=== PATIENT | female | born 1945 | race Caucasian/White ===

== ENCOUNTER 2024-11-24 17:09 | Inpatient (IN) | payer MEDICARE, SELFPAY ==
[2024-11-24] VITALS (17 sets, daily range): BP systolic 73–120; BP diastolic 42–90; PULSE 71–103; RESP 9–20; TEMP 33.7–34.9; O2SAT 92–98
--- NOTE | ~2024-11-24 | CT_ITS ---
CLINICAL HISTORY: altered mental status CT Head WO Contrast COMPARISON: None FINDINGS: No acute intracranial hemorrhage. No evidence of acute infarction. Diffuse cortical volume loss. Nonspecific white matter hypodensities, most commonly associated with chronic microangiopathic changes. No mass-effect or midline shift. No hydrocephalus. Visualized orbits are normal. Clear paranasal sinuses. Clear mastoid air cells. No acute fracture. Unremarkable soft tissues. IMPRESSION: No acute intracranial findings. Nonemergent/incidental findings in the report. This document has been electronically signed by: Andres Villeda MD on 11/24/2024 20:31:26
--- NOTE | ~2024-11-24 | XR_ITS ---
CLINICAL HISTORY: sepsis --- Additional Notes or Special Instructions: Blood work - 1826 Chest X-ray, 1 View COMPARISON: None FINDINGS: Ovoid mass or consolidation projecting over the lateral left mid lung measuring 4.4 cm. Ovoid nodule or consolidation projecting over the right lower lung measuring 2.8 cm. Scarring at the lung apices. Pulmonary hyperinflation suggestive of COPD. No pleural effusion. No pneumothorax. No cardiomegaly. No acute fracture. Lumbar dextroscoliosis. Degenerative changes in the spine. IMPRESSION: Left pulmonary mass and right lower lung pulmonary nodule versus consolidations. Recommend follow-up chest x-ray or CT Chest. Nonemergent/incidental findings above. This document has been electronically signed by: Andres Villeda MD on 11/24/2024 19:35:47
--- NOTE | ~2024-11-24 | CT_ITS ---
CLINICAL HISTORY: abn CXR, mass vs infiltrate CT Chest WO Contrast COMPARISON: CR - XR CHEST 1V - 11/24/24 19:11 EDT FINDINGS: Detail limited by motion artifacts. Left breast or chest wall mass measuring 4.8 x 2.0 cm (series 3, image 27), which appears to correspond to density projecting over the left chest on recent chest x-ray. No pulmonary consolidation or mass. Centrilobular and paraseptal emphysematous changes. Scarring at the lung apices. No pleural effusion. No pneumothorax. No cardiomegaly. No pericardial effusion. No pathologically enlarged lymph nodes. No thoracic aortic aneurysm. No acute fracture. Thoracic dextroscoliosis and lumbar levoscoliosis. Degenerative changes in the spine. IMPRESSION: No acute findings. No pulmonary mass, nodule, or consolidation. Left breast or chest wall mass corresponding to left chest density seen on recent chest x-ray. Please correlate with history and clinical findings. Consider diagnostic mammogram if indicated. Nodular right lower lung density seen on recent chest x-ray appears to have been a projectional artifact. Nonemergent/incidental findings above. See separate CT Abdomen/Pelvis report. This document has been electronically signed by: Andres Villeda MD on 11/24/2024 20:56:43
--- NOTE | ~2024-11-24 | CT_ITS ---
CLINICAL HISTORY: Possible sepsis, no clear source CT Abdomen and Pelvis WO Contrast COMPARISON: None FINDINGS: Detail limited by artifacts. Normal liver. Normal spleen. Bilateral renal cysts including a hyperdense hemorrhagic left renal cyst. Normal variant superior positioning of the right kidney. No hydronephrosis. Normal adrenal glands. Normal pancreas. No visible cholelithiasis. No biliary dilation. Colonic diverticulosis without evidence of acute diverticulitis. No mucosal thickening. No evidence of obstruction. The appendix is not identified. Poorly distended bladder. Unremarkable uterus. No ascites. No pneumoperitoneum. No lymphadenopathy. No acute fracture. Lumbar levoscoliosis. Degenerative changes in the spine and hips. Chronic appearing fracture at the sacrococcygeal junction. No abdominal aortic aneurysm. Atherosclerosis. Rectal temperature probe in place. IMPRESSION: No acute findings. Nonemergent/incidental findings above. This document has been electronically signed by: Andres Villeda MD on 11/24/2024 20:53:48
--- NOTE | ~2024-11-24 | US_ITS ---
CLINICAL HISTORY: swelling Venous duplex ultrasound left upper extremity Comparison: None Findings: Accessible deep venous segments are fully compressible with normal Doppler color flow and spectral tracings. IMPRESSION: 1. Negative for left upper extremity deep vein thrombosis. This document has been electronically signed by: Martita Johnson MD on 12/01/2024 18:37:47
--- NOTE | 2024-11-24 17:48 | ECG_ITS ---
Test Reason : FALL Blood Pressure : */* mmHG Vent. Rate : 78 BPM Atrial Rate : * BPM P-R Int : * ms QRS Dur : 84 ms QT Int : 418 ms P-R-T Axes : * 86 66 degrees QTcB Int : 476 ms Artifact in tracing Normal sinus rhythm Probably normal EKG No previous ECGs available Referred By: Generic ED Physician Electronically Signed By: NAS BENÍTEZ
--- NOTE | 2024-11-24 17:53 | ED_ITS ---
HPI - General Adult General Chief complaint: Altered Mental Status Stated complaint: UNWITT FALL, AMS, - THINN PER EMS Time Seen by Provider: 11/24/24 17:53 History of Present Illness ED Provider: Dia LANDAVERDE narrative: The patient is a 79-year-old female who lives by herself. She apparently has very little contact with anyone outside her apartment. Even her daughter has very little contact with her. According to the daughter the patient has not seen a doctor in a long time and is on no medications. The daughter says the patient's apartment is a mess and may not have working plumbing. Apparently the landlord heard a fall earlier today and called 911. The patient was on the floor. Paramedics arrived and helped the patient into her bed but patient refused to come to the hospital. Later the daughter checked on the patient and did not feel that she looked well and called 911 again. At that point paramedics felt the patient seemed confused and brought her to the emergency room despite her request that she not come to the emergency room. The patient's daughter thinks that the the patient has some degree of dementia and paranoia. The patient denies headache. She denies neck pain. She denies chest pain. She denies any significant cough. She denies abdominal pain, nausea, vomiting. She denies any urinary discomfort. Related Data Allergies Allergy/AdvReac Type Severity Reaction Status Date / Time No Known Allergies Allergy Verified 11/24/24 17:55 Review of Systems 2 Review of Systems: Yes all other systems are reviewed and are negative PMFSH Social History Social History Smoked in Last 30 Days: No Use of substances other than those prescribed or required for medical reasons: No Advance Directives: No Advance Directives Information Provided: No Do you have a plan to hurt others: No Plan Physical Exam ED Vital Signs: Vital Signs - 24 hr 11/24/24 17:44 11/24/24 17:50 11/24/24 18:26 Temperature 92.7 F L Pulse Rate 76 78 76 Respiratory Rate 18 20 20 Blood Pressure 82/48 L 86/60 L 120/90 H Pulse Oximetry 93 93 95 Oxygen Delivery Method Room Air Room Air Room Air Oxygen Flow Rate 11/24/24 18:40 11/24/24 18:58 11/24/24 19:03 Temperature Pulse Rate 77 87 82 Respiratory Rate 18 18 18 Blood Pressure 73/46 L 88/53 L 95/42 L Pulse Oximetry 92 92 92 Oxygen Delivery Method Room Air Room Air Room Air Oxygen Flow Rate 11/24/24 19:15 11/24/24 19:33 11/24/24 19:39 Temperature 93.2 F L 93.4 F L 93.6 F L Pulse Rate 83 82 103 H Respiratory Rate 18 9 L 14 Blood Pressure 83/48 L 90/55 L 96/60 Pulse Oximetry 95 93 94 Oxygen Delivery Method Nasal Cannula Nasal Cannula Nasal Cannula Oxygen Flow Rate 2 2 2 11/24/24 19:56 11/24/24 20:31 11/24/24 21:11 Temperature 93.6 F L 94.7 F L Pulse Rate 84 76 Respiratory Rate 14 18 Blood Pressure 87/57 L 91/64 Pulse Oximetry 93 95 Oxygen Delivery Method Nasal Cannula Nasal Cannula Oxygen Flow Rate 2 2 11/24/24 21:16 11/24/24 21:30 Temperature 93.9 F L 94.9 F L Pulse Rate 71 94 Respiratory Rate 16 18 Blood Pressure 93/56 L 92/61 Pulse Oximetry 98 94 Oxygen Delivery Method Nasal Cannula Nasal Cannula Oxygen Flow Rate 2 2 BMI result Body Mass Index 9.6 Const Other: The patient is an extremely small, frail looking 79-year-old. She is quite cachectic looking. She is awake and alert. She has a very vague demeanor but is quite pleasant. HENMT Other: Mucous membranes appear dry. The face is symmetrical. No obvious signs of trauma to the head or the face. No raccoon eyes. No alston sign. Eyes Other: Pupils are round equal, conjunctivae are clear, extraocular movements intact Neck Other: No posterior midline C-spine tenderness. She is moving her neck easily without pain. Her C-spine is clinically clear. She has no JVD. No lymphadenopathy. Neck is supple. Resp Effort & Inspection: normal respiratory effort Auscultation: clear to auscultation bilaterally Cardio Other: The patient has an irregular rate and rhythm GI Other: Abdomen is soft and nontender Skin Other: The patient has several skin tears that look old on the right arm. Neuro Other: The patient is awake and alert. She has a vague demeanor suggestive of some dementia. Cranial nerves 2-12 are grossly intact. She moves her extremities symmetrically. She has a nonfocal exam although she seems deconditioned. Extrem Other: The patient has very thin extremities. There is no peripheral edema. There was no calf swelling or tenderness. She has what seemed to be healing skin tears to the skin of the right arm. She is able to move the right arm normally. Medications Administered Generic Name Dose Route Start Last Admin Trade Name Freq PRN Reason Stop Dose Admin Lactated Ringer's 1,000 mls @ 250 mls/hr 11/24/24 21:45 11/25/24 00:37 Lr IVCONT 250 mls/hr .Q4H ETHEL Administration Dextrose/Sodium Chloride 1,000 mls @ 100 mls/hr 11/24/24 22:00 11/24/24 23:23 D51/2ns IVCONT 100 mls/hr .Q10H ETHEL Administration Sodium Chloride 3 ml 11/25/24 00:00 11/24/24 23:24 0.9 % Sodium Chloride Flush 3 Ml Syringe IVFLUSH Not Given QSHIFT ETHEL Discontinued Medications Generic Name Dose Route Start Last Admin Trade Name Freq PRN Reason Stop Dose Admin Piperacillin Sod/Tazobactam 50 mls @ 100 mls/hr 11/24/24 18:09 11/24/24 18:55 Sod 3.375 gm/ Sodium Chloride IV 11/24/24 18:38 Infused ONCE ONE Infusion Sodium Chloride 1,000 mls @ 999 mls/hr 11/24/24 18:15 11/24/24 19:04 Ns IV 11/24/24 19:15 Infused .Q1H1M ETHEL Infusion Vancomycin HCl 500 mg/ Sodium 110 mls @ 110 mls/hr 11/24/24 18:17 11/24/24 19:33 Chloride IV 11/24/24 19:16 Infused ONCE ONE Infusion Calcium Gluconate 2 gm in 100 mls @ 400 mls/hr 11/24/24 18:42 11/24/24 19:33 Calcium Gluconate IV 11/24/24 18:56 Infused ONCE ONE Infusion Lactated Ringer's 1,000 mls @ 999 mls/hr 11/24/24 20:15 11/24/24 21:12 Lr IV 11/24/24 21:15 Infused .Q1H1M ETHEL Infusion Sodium Zirconium Cyclosilicate 10 gm 11/24/24 18:43 11/24/24 19:16 Sodium Zirconium Cyclosilicate 10 Gm Powd.Pack PO 11/24/24 18:44 10 gm ONCE ONE Administration Medical Decision Making Medical Decision Making [facility] Narrative: The patient is a 79-year-old woman who was brought to the hospital by ambulance after a fall at her apartment. The patient is a very poor historian. I suspect she has some dementia. Her daughter was at the bedside. Apparently the patient has been quite isolated recently. She may have some degree of dementia. Her daughter describes what may be holding behavior. She has not seen a doctor in years and is on no medications. Clinically the patient appeared quite cachectic and dehydrated. Her rectal temperature showed some degree of hypothermia with a temperature of 92.7 degrees. She was somewhat hypotensive with a blood pressure of 82/48. However her heart rate and respiratory rate were normal. It was not clear if the patient was septic or if she was simply very dehydrated and was suffering from exposure and possibly poor nutrition. Given her hypotension and hypothermia blood cultures were obtained and she was started on empiric antibiotics although there was no clear source of infection based on her history. The patient was given empiric antibiotics and IV fluids. Her weight had been measured at 27.7 kg. Therefore the 1 L of normal saline ordered initially would meet a 30 mL/kilos initial fluid volume. She was mildly hypoglycemic but was able to take oral intake and this seemed to correct her hypoglycemia. The patient has labs showed renal insufficiency with an elevated creatinine and BUN. This was associated with hyperkalemia with a potassium of 6.6. The patient was given IV calcium gluconate and Lokelma as well as IV fluids to address her hyperkalemia. It was my impression that the hyperkalemia was probably primarily on the basis of acute dehydration and renal insufficiency. Given that the patient might have had a fall a head CT was obtained. Given that it was not clear if there was any element of sepsis or other possible significant illness and given that her initial chest x-ray has been read as possibly showing a lung mass we obtained a CT scan of the chest, abdomen, and pelvis. These were done without contrast because of her poor renal function. The patient was given warm blankets and ultimately a Arie Hugger to address her hypothermia. The patient has initial lactate came back normal. Her urinalysis did not show any sign of infection. Venous blood gas was unremarkable. EKG showed atrial fibrillation. The patient was given additional IV fluids because of borderline blood pressures. It is difficult to know what her baseline blood pressure is given how small and cachectic she is. I performed a focused sepsis exam at 21:30. A urinary catheter was placed to monitor urine output given her renal failure. She ultimately seemed to be making good urine output through the catheter. The patient's blood pressure ultimately seemed to stabilize after IV fluids. Repeat labs showed improvement in her potassium. I ultimately felt that she was appropriate for admission to the hospitalist service on telemetry. The patient was accepted for admission on telemetry. Lab Data 11/24/24 17:56 11/24/24 22:16 Labs: Lab Results 11/24/24 11/24/24 11/24/24 Range/Units 17:56 18:00 18:42 WBC 2.6 L (4.8-10.8) X10*3/uL RBC 3.54 L (4.20-5.50) X10*6/uL Hgb 12.3 (12.0-16.0) g/dl Hct 37.7 (37.0-47.0) % MCV 106.5 H (80.0-98.0) fL MCH 34.7 H (27.0-33.0) pg MCHC 32.6 (31.0-35.0) g/dl RDW 15.4 (11.0-16.0) % Plt Count 108 L (160-400) X10*3/uL MPV 10.9 (9.4-12.3) fL Immature Gran % (Auto) 0.4 (0.0-0.4) % Neut % (Auto) 84.6 H (45-73) % Lymph % (Auto) 7.3 L (20-40) % [place] % (Auto) 7.7 (2-11) % Eos % (Auto) 0.0 (0-4) % Baso % (Auto) 0.0 (0-2) % Lymph # (Auto) 0.2 L (1.2-4.9) X10*3/uL [place] # (Auto) 0.2 (0.1-1.2) X10*3/uL Eos # (Auto) 0.0 (0.0-0.4) X10*3/uL Baso # (Auto) 0.0 (0.0-0.2) X10*3/uL Abs Immat Gran (auto) 0.01 (0.00-0.03) X10*3/uL Absolute Neuts (auto) 2.2 (2.0-8.3) x10*3/uL Absolute Nucleated RBC 0.000 (0.0-0.012) X10*3/uL Nucleated RBC % (auto) 0.0 (0.0-0.2) /100WBC VBG pH 7.33 (7.32-7.43) VBG pCO2 53 mmHg VBG pO2 73 mmHg VBG HCO3 28 H (22-26) mmol/L VBG O2 Saturation 91.0 % VBG Base Excess 2.0 mmol/L Sodium 148 H (135-145) mmol/L Potassium 6.6 H* (3.3-5.1) mmol/L Chloride 109 H (96-108) mmol/L Carbon Dioxide 28 (22-29) mmol/L Anion Gap 18 (12-20) BUN 75 H (9-16) mg/dL Creatinine 2.77 H (0.5-1.4) mg/dL Estim Creat Clear Calc 7.1 Estimated GFR 17 POC Glucose 47 L* (60-115) mg/dL Random Glucose 58 L* (60-115) mg/dL Lactic Acid 1.4 (0.5-2.0) mmol/L Calcium 8.3 L (8.4-10.2) mg/dL Magnesium 2.4 (1.6-2.6) mg/dL Total Bilirubin 0.6 (0.0-1.0) mg/dL AST 79 H (5-31) U/L ALT 55 H (0-31) U/L Alkaline Phosphatase 95 (39-117) U/L Total Creatine Kinase 283 H (26-140) U/L Troponin I High Sens 8.6 (<3.5-17.0) ng/L C-Reactive Protein 1.33 H (< or = 0.50) mg/dL Total Protein 4.9 L (6.5-8.0) g/dL Albumin 2.9 L (3.5-5.0) g/dL Lipase 55 (8-78) U/L Urine Color Urine Appearance Urine pH (5.0-9.0) Ur Specific Porter (1.005-1.025) Urine Protein (Neg-Trace) mg/dL Urine Glucose (UA) (Negative) mg/dL Urine Ketones (Negative) mg/dL Urine Blood (Negative) Urine Nitrite (Negative) Ur Leukocyte Esterase (Negative) Urine RBC (0-2) /HPF Urine WBC (0-5) /HPF Ur Squamous Epith Cells (0-2) /HPF Urine Bacteria (None Seen) Hyaline Casts (0-2) /LPF Urine Opiates Screen (Not Detect) Ur Buprenorphine Scrn (Not Detect) ng/mL Ur Oxycodone Screen (Not Detect) ng/mL Urine Methadone Screen (Not Detect) ng/mL Urine Fentanyl Screen (Not Detect) Ur Barbiturates Screen (Not Detect) Ur Phencyclidine Scrn (Not Detect) Ur Amphetamines Screen (Not Detect) U Benzodiazepines Scrn (Not Detect) Urine Cocaine Screen (Not Detect) U Marijuana (THC) Screen (Not Detect) 11/24/24 11/24/24 11/24/24 Range/Units 19:06 19:07 20:45 WBC (4.8-10.8) X10*3/uL RBC (4.20-5.50) X10*6/uL Hgb (12.0-16.0) g/dl Hct (37.0-47.0) % MCV (80.0-98.0) fL MCH (27.0-33.0) pg MCHC (31.0-35.0) g/dl RDW (11.0-16.0) % Plt Count (160-400) X10*3/uL MPV (9.4-12.3) fL Immature Gran % (Auto) (0.0-0.4) % Neut % (Auto) (45-73) % Lymph % (Auto) (20-40) % [place] % (Auto) (2-11) % Eos % (Auto) (0-4) % Baso % (Auto) (0-2) % Lymph # (Auto) (1.2-4.9) X10*3/uL [place] # (Auto) (0.1-1.2) X10*3/uL Eos # (Auto) (0.0-0.4) X10*3/uL Baso # (Auto) (0.0-0.2) X10*3/uL Abs Immat Gran (auto) (0.00-0.03) X10*3/uL Absolute Neuts (auto) (2.0-8.3) x10*3/uL Absolute Nucleated RBC (0.0-0.012) X10*3/uL Nucleated RBC % (auto) (0.0-0.2) /100WBC VBG pH (7.32-7.43) VBG pCO2 mmHg VBG pO2 mmHg VBG HCO3 (22-26) mmol/L VBG O2 Saturation % VBG Base Excess mmol/L Sodium (135-145) mmol/L Potassium (3.3-5.1) mmol/L Chloride (96-108) mmol/L Carbon Dioxide (22-29) mmol/L Anion Gap (12-20) BUN (9-16) mg/dL Creatinine (0.5-1.4) mg/dL Estim Creat Clear Calc Estimated GFR POC Glucose 63 113 (60-115) mg/dL Random Glucose (60-115) mg/dL Lactic Acid (0.5-2.0) mmol/L Calcium (8.4-10.2) mg/dL Magnesium (1.6-2.6) mg/dL Total Bilirubin (0.0-1.0) mg/dL AST (5-31) U/L ALT (0-31) U/L Alkaline Phosphatase (39-117) U/L Total Creatine Kinase (26-140) U/L Troponin I High Sens (<3.5-17.0) ng/L C-Reactive Protein (< or = 0.50) mg/dL Total Protein (6.5-8.0) g/dL Albumin (3.5-5.0) g/dL Lipase (8-78) U/L Urine Color Yellow Urine Appearance Clear Urine pH 5.5 (5.0-9.0) Ur Specific [place] 1.015 (1.005-1.025) Urine Protein 100 (2+) H (Neg-Trace) mg/dL Urine Glucose (UA) Negative (Negative) mg/dL Urine Ketones Trace (Negative) mg/dL Urine Blood Negative (Negative) Urine Nitrite Negative (Negative) Ur Leukocyte Esterase Negative (Negative) Urine RBC 0-2 (0-2) /HPF Urine WBC 0-5 (0-5) /HPF Ur Squamous Epith Cells 0-2 (0-2) /HPF Urine Bacteria None Seen (None Seen) Hyaline Casts 0-2 (0-2) /LPF Urine Opiates Screen Not Detected (Not Detect) Ur Buprenorphine Scrn Not Detected (Not Detect) ng/mL Ur Oxycodone Screen Not Detected (Not Detect) ng/mL Urine Methadone Screen Not Detected (Not Detect) ng/mL Urine Fentanyl Screen Not Detected (Not Detect) Ur Barbiturates Screen Not Detected (Not Detect) Ur Phencyclidine Scrn Not Detected (Not Detect) Ur Amphetamines Screen Not Detected (Not Detect) U Benzodiazepines Scrn Not Detected (Not Detect) Urine Cocaine Screen Not Detected (Not Detect) U Marijuana (THC) Screen Not Detected (Not Detect) 11/24/24 Range/Units 21:02 WBC (4.8-10.8) X10*3/uL RBC (4.20-5.50) X10*6/uL Hgb (12.0-16.0) g/dl Hct (37.0-47.0) % MCV (80.0-98.0) fL MCH (27.0-33.0) pg MCHC (31.0-35.0) g/dl RDW (11.0-16.0) % Plt Count (160-400) X10*3/uL MPV (9.4-12.3) fL Immature Gran % (Auto) (0.0-0.4) % Neut % (Auto) (45-73) % Lymph % (Auto) (20-40) % [place] % (Auto) (2-11) % Eos % (Auto) (0-4) % Baso % (Auto) (0-2) % Lymph # (Auto) (1.2-4.9) X10*3/uL [place] # (Auto) (0.1-1.2) X10*3/uL Eos # (Auto) (0.0-0.4) X10*3/uL Baso # (Auto) (0.0-0.2) X10*3/uL Abs Immat Gran (auto) (0.00-0.03) X10*3/uL Absolute Neuts (auto) (2.0-8.3) x10*3/uL Absolute Nucleated RBC (0.0-0.012) X10*3/uL Nucleated RBC % (auto) (0.0-0.2) /100WBC VBG pH (7.32-7.43) VBG pCO2 mmHg VBG pO2 mmHg VBG HCO3 (22-26) mmol/L VBG O2 Saturation % VBG Base Excess mmol/L Sodium 148 H (135-145) mmol/L Potassium 6.1 H* (3.3-5.1) mmol/L Chloride 111 H (96-108) mmol/L Carbon Dioxide 27 (22-29) mmol/L Anion Gap 16 (12-20) BUN 66 H (9-16) mg/dL Creatinine 2.45 H (0.5-1.4) mg/dL Estim Creat Clear Calc 8.1 Estimated GFR 19 POC Glucose (60-115) mg/dL Random Glucose 105 (60-115) mg/dL Lactic Acid (0.5-2.0) mmol/L Calcium 8.1 L (8.4-10.2) mg/dL Magnesium (1.6-2.6) mg/dL Total Bilirubin (0.0-1.0) mg/dL AST (5-31) U/L ALT (0-31) U/L Alkaline Phosphatase (39-117) U/L Total Creatine Kinase (26-140) U/L Troponin I High Sens (<3.5-17.0) ng/L C-Reactive Protein (< or = 0.50) mg/dL Total Protein (6.5-8.0) g/dL Albumin (3.5-5.0) g/dL Lipase (8-78) U/L Urine Color Urine Appearance Urine pH (5.0-9.0) Ur Specific [place] (1.005-1.025) Urine Protein (Neg-Trace) mg/dL Urine Glucose (UA) (Negative) mg/dL Urine Ketones (Negative) mg/dL Urine Blood (Negative) Urine Nitrite (Negative) Ur Leukocyte Esterase (Negative) Urine RBC (0-2) /HPF Urine WBC (0-5) /HPF Ur Squamous Epith Cells (0-2) /HPF Urine Bacteria (None Seen) Hyaline Casts (0-2) /LPF Urine Opiates Screen (Not Detect) Ur Buprenorphine Scrn (Not Detect) ng/mL Ur Oxycodone Screen (Not Detect) ng/mL Urine Methadone Screen (Not Detect) ng/mL Urine Fentanyl Screen (Not Detect) Ur Barbiturates Screen (Not Detect) Ur Phencyclidine Scrn (Not Detect) Ur Amphetamines Screen (Not Detect) U Benzodiazepines Scrn (Not Detect) Urine Cocaine Screen (Not Detect) U Marijuana (THC) Screen (Not Detect) Discharge Plan Discharge Clinical Impression: CONNIE (acute kidney injury), Acute hyperkalemia, Acute dehydration Patient Disposition: Home, Self-Care
[2024-11-24 18:01] LABS: MANUAL DIFF FLAG NO
[2024-11-24 18:07] LABS: Venous Blood Gas Refer to POC result
[2024-11-24 18:09] LABS: VBG HCO3 28 mmol/L (22-26); VBG pCO2 53 mmHg; VBG pH 7.33 (7.32-7.43); VBG pO2 73 mmHg
[2024-11-24 18:21] LABS: Lactic Acid 1.4 mmol/L (0.5-2.0)
[2024-11-24 18:28] LABS: Troponin-I High Sensitivity 8.6 ng/L (<3.5-17.0)
[2024-11-24 18:30] LABS: C Reactive Protein 1.33 mg/dL (< or = 0.50)
[2024-11-24 18:32] LABS: Hematocrit 37.7 % (37.0-47.0); Hemoglobin 12.3 g/dl (12.0-16.0); Imm Gran Abs Auto 0.01 X10*3/uL (0.00-0.03); Imm Gran Pct Auto 0.4 % (0.0-0.4); Lymphocytes Absolute Auto 0.2 X10*3/uL (1.2-4.9); Lymphocytes Percent Auto 7.3 % (20-40); Mean Corpuscular HGB Conc 32.6 g/dl (31.0-35.0); Mean Corpuscular Hemoglobin 34.7 pg (27.0-33.0); Mean Corpuscular Volume 106.5 fL (80.0-98.0); Mean Platelet Volume 10.9 fL (9.4-12.3); Monocytes Absolute Auto 0.2 X10*3/uL (0.1-1.2); Monocytes Percent Auto 7.7 % (2-11); Neutrophils Absolute Auto 2.2 x10*3/uL (2.0-8.3); Neutrophils Percent Auto 84.6 % (45-73); Platelet Count 108 X10*3/uL (160-400); Red Blood Count 3.54 X10*6/uL (4.20-5.50); Red Cell Distribution Width 15.4 % (11.0-16.0); White Blood Count 2.6 X10*3/uL (4.8-10.8)
[2024-11-24] MEDS: 0.9 % Sodium Chloride 1,000 ML 999 ML IV (18:33)
[2024-11-24] MEDS: Piperacillin Sodium/Tazobactam 3.375 GM in 0.9 % Sodium Chloride 50 ML IV (18:34)
[2024-11-24 18:37] LABS: Alanine Aminotransferase 55 U/L (0-31); Albumin Level 2.9 g/dL (3.5-5.0); Alkaline Phosphatase 95 U/L (39-117); Anion Gap 18 (12-20); Aspartate Amino Transferase 79 U/L (5-31); Bilirubin Total 0.6 mg/dL (0.0-1.0); Blood Urea Nitrogen 75 mg/dL (9-16); Calcium 8.3 mg/dL (8.4-10.2); Carbon Dioxide 28 mmol/L (22-29); Chloride 109 mmol/L (96-108); Creatinine Clr Calc Pharmacy 7.1; Estimated Glomerular Filt Rate 17; Glucose Random 58 mg/dL (60-115); Lipase 55 U/L (8-78); Magnesium 2.4 mg/dL (1.6-2.6); Potassium 6.6 mmol/L (3.3-5.1); Sodium 148 mmol/L (135-145); Total Protein 4.9 g/dL (6.5-8.0)
[2024-11-24] MEDS: vancomycin HCL 500 MG in 0.9 % Sodium Chloride 100 ML 110 MG IV (18:40)
[2024-11-24] MEDS: Calcium Gluconate/NaCl,Iso-Osm 2 GM/100 ML PLAST..BAG IV (19:16)
[2024-11-24] MEDS: Sodium Zirconium Cyclosilicate 10 GM POWD.PACK PO (19:16)
[2024-11-24 19:17] LABS: Appearance Urine Clear; Color Urine Yellow; Glucose Urine UA Negative (Negative); Leukocyte Esterase Urine Negative (Negative); Nitrite Urine Negative (Negative); PH 5.5 (5.0-9.0); Specific Gravity - Urine 1.015 (1.005-1.025); UMIC TRIGGER UACC YES; Urine Blood Negative (Negative); Urine Ketones Trace mg/dL (Negative); Urine Protein 100 (2+) mg/dL (Neg-Trace)
[2024-11-24 19:22] LABS: Bacteria Urine None Seen (None Seen); Hyaline Casts Urine 0-2 /LPF (0-2); RBC Urine 0-2 /HPF (0-2); Squamous Epithelial Cell Urine 0-2 /HPF (0-2); WBC Urine 0-5 /HPF (0-5)
--- NOTE | 2024-11-24 20:03 | PC.NURSE ---
2 apple juices with sugar given to pt when critical poc of 46, rechecked 1/2 hour later was 63. Mentcle juice given, per MD. Recheck poc in 1 hour.
[2024-11-24] MEDS: Lactated Ringers 1,000 ML 999 ML IV (20:20)
[2024-11-24 20:27] LABS: Amphetamine Screen Urine Not Detected (Not Detect); Barbiturates, Urine Not Detected (Not Detect); Benzodiazepines Screen Urine Not Detected (Not Detect); Buprenorphine Scr Not Detected (Not Detect); Cannabinoid Screen Urine Not Detected (Not Detect); Cocaine Screen Urine Not Detected (Not Detect); Fentanyl, urine Not Detected (Not Detect); Methadone Screen, Urine Not Detected (Not Detect); Opiate Screen Urine Not Detected (Not Detect); Oxycodone Screen Urine Not Detected (Not Detect); Phencyclidine Screen Urine Not Detected (Not Detect)
[2024-11-24 20:50] LABS: Glucose, Whole Blood 63 mg/dL (60-115)
[2024-11-24 20:50] LABS: Glucose, Whole Blood 47 mg/dL (60-115)
[2024-11-24 20:50] LABS: Glucose, Whole Blood 113 mg/dL (60-115)
[2024-11-24 21:31] LABS: Anion Gap 16 (12-20); Blood Urea Nitrogen 66 mg/dL (9-16); Calcium 8.1 mg/dL (8.4-10.2); Carbon Dioxide 27 mmol/L (22-29); Chloride 111 mmol/L (96-108); Creatinine Clr Calc Pharmacy 8.1; Estimated Glomerular Filt Rate 19; Glucose Random 105 mg/dL (60-115); Potassium 6.1 mmol/L (3.3-5.1); Sodium 148 mmol/L (135-145)
--- NOTE | 2024-11-24 21:55 | P.HPHOSP_ITS ---
History of Present Illness Date of Service: 11/24/24 Chief Complaint: fall 79-year-old female with no significant past medical history; has not seen physician in a while; presented to the hospital with a chief complaint of fall. Patient is a poor historian. Most of the history obtained from the records and the staff. Reportedly patient had a fall heard by the landlord, subsequently sent her to the hospital for further evaluation Patient denies any chest pain palpitations. Denies any headaches or blurry visions. Denies any numbness tingling focal weakness. Denies back pain. Denies any urinary symptoms. Review of all other systems is negative except mentioned above ER course: Per ER physician, patient's exam was benign; CT head, CT chest abdomen pelvis showed no acute findings; patient noted to have elevated creatinine 2.45-unknown baseline; ulcers potassium 6.1. EKG no acute changes. Consult for possible dehydration. Patient was given IV fluids. Also noted have mild pancytopenia. No clear signs of infection. Given IV fluids. Castaneda catheter was placed for I's and O's. PMFSH Social History Smoked in Last 30 Days: No Use of substances other than those prescribed or required for medical reasons: No Advance Directives: No Advance Directives Information Provided: No Do you have a plan to hurt others: No Plan Meds Allergies Allergy/AdvReac Type Severity Reaction Status Date / Time No Known Allergies Allergy Verified 11/24/24 17:55 Active Medications: Current Medications Lactated Ringer's (Lr) 1,000 mls @ 250 mls/hr IVCONT .Q4H ETHEL Physical Exam 2 Vital Signs and Narrative: Vital Signs: Last Vital Signs Temp 93.9 F L 11/24/24 21:16 Pulse 71 11/24/24 21:16 Resp 16 11/24/24 21:16 BP 93/56 L 11/24/24 21:16 Pulse Ox 98 11/24/24 21:16 O2 Del Method Nasal Cannula 11/24/24 21:16 O2 Flow Rate 2 11/24/24 21:16 BMI result Body Mass Index 9.6 Gen: Appears be in no acute distress HEENT: NCAT, Moist mucosa. Pulmonary: Vesicular breath sounds, fair air entry CVS: Normal S1-S2 Abdomen: BS+, Soft, Nontender Extremities: Warm well perfused Neuro: Alert and awake. Results Labs 11/25/24 03:27 11/25/24 03:27 Labs: Laboratory Results - last 24 hr 11/24/24 11/24/24 11/24/24 17:56 18:00 18:42 MCV 106.5 H MCH 34.7 H MCHC 32.6 RDW 15.4 Plt Count 108 L MPV 10.9 Immature Gran % (Auto) 0.4 Neut % (Auto) 84.6 H Lymph % (Auto) 7.3 L [place] % (Auto) 7.7 Eos % (Auto) 0.0 Baso % (Auto) 0.0 Lymph # (Auto) 0.2 L [place] # (Auto) 0.2 Eos # (Auto) 0.0 Baso # (Auto) 0.0 Abs Immat Gran (auto) 0.01 Absolute Neuts (auto) 2.2 Absolute Nucleated RBC 0.000 Nucleated RBC % (auto) 0.0 VBG pH 7.33 VBG pCO2 53 VBG pO2 73 VBG HCO3 28 H VBG O2 Saturation 91.0 VBG Base Excess 2.0 Anion Gap 18 Estim Creat Clear Calc 7.1 Estimated GFR 17 POC Glucose 47 L* Random Glucose 58 L* Lactic Acid 1.4 Calcium 8.3 L Magnesium 2.4 Total Bilirubin 0.6 AST 79 H ALT 55 H Alkaline Phosphatase 95 Total Creatine Kinase 283 H Troponin I High Sens 8.6 C-Reactive Protein 1.33 H Total Protein 4.9 L Albumin 2.9 L Lipase 55 Urine Color Urine Appearance Urine pH Ur Specific [place] Urine Protein Urine Glucose (UA) Urine Ketones Urine Blood Urine Nitrite Ur Leukocyte Esterase Urine RBC Urine WBC Ur Squamous Epith Cells Urine Bacteria Hyaline Casts Urine Opiates Screen Ur Buprenorphine Scrn Ur Oxycodone Screen Urine Methadone Screen Urine Fentanyl Screen Ur Barbiturates Screen Ur Phencyclidine Scrn Ur Amphetamines Screen U Benzodiazepines Scrn Urine Cocaine Screen U Marijuana (THC) Screen 11/24/24 11/24/24 11/24/24 19:06 19:07 20:45 MCV MCH MCHC RDW Plt Count MPV Immature Gran % (Auto) Neut % (Auto) Lymph % (Auto) [place] % (Auto) Eos % (Auto) Baso % (Auto) Lymph # (Auto) [place] # (Auto) Eos # (Auto) Baso # (Auto) Abs Immat Gran (auto) Absolute Neuts (auto) Absolute Nucleated RBC Nucleated RBC % (auto) VBG pH VBG pCO2 VBG pO2 VBG HCO3 VBG O2 Saturation VBG Base Excess Anion Gap Estim Creat Clear Calc Estimated GFR POC Glucose 63 113 Random Glucose Lactic Acid Calcium Magnesium Total Bilirubin AST ALT Alkaline Phosphatase Total Creatine Kinase Troponin I High Sens C-Reactive Protein Total Protein Albumin Lipase Urine Color Yellow Urine Appearance Clear Urine pH 5.5 Ur Specific [place] 1.015 Urine Protein 100 (2+) H Urine Glucose (UA) Negative Urine Ketones Trace Urine Blood Negative Urine Nitrite Negative Ur Leukocyte Esterase Negative Urine RBC 0-2 Urine WBC 0-5 Ur Squamous Epith Cells 0-2 Urine Bacteria None Seen Hyaline Casts 0-2 Urine Opiates Screen Not Detected Ur Buprenorphine Scrn Not Detected Ur Oxycodone Screen Not Detected Urine Methadone Screen Not Detected Urine Fentanyl Screen Not Detected Ur Barbiturates Screen Not Detected Ur Phencyclidine Scrn Not Detected Ur Amphetamines Screen Not Detected U Benzodiazepines Scrn Not Detected Urine Cocaine Screen Not Detected U Marijuana (THC) Screen Not Detected 11/24/24 21:02 MCV MCH MCHC RDW Plt Count MPV Immature Gran % (Auto) Neut % (Auto) Lymph % (Auto) [place] % (Auto) Eos % (Auto) Baso % (Auto) Lymph # (Auto) [place] # (Auto) Eos # (Auto) Baso # (Auto) Abs Immat Gran (auto) Absolute Neuts (auto) Absolute Nucleated RBC Nucleated RBC % (auto) VBG pH VBG pCO2 VBG pO2 VBG HCO3 VBG O2 Saturation VBG Base Excess Anion Gap 16 Estim Creat Clear Calc 8.1 Estimated GFR 19 POC Glucose Random Glucose 105 Lactic Acid Calcium 8.1 L Magnesium Total Bilirubin AST ALT Alkaline Phosphatase Total Creatine Kinase Troponin I High Sens C-Reactive Protein Total Protein Albumin Lipase Urine Color Urine Appearance Urine pH Ur Specific [place] Urine Protein Urine Glucose (UA) Urine Ketones Urine Blood Urine Nitrite Ur Leukocyte Esterase Urine RBC Urine WBC Ur Squamous Epith Cells Urine Bacteria Hyaline Casts Urine Opiates Screen Ur Buprenorphine Scrn Ur Oxycodone Screen Urine Methadone Screen Urine Fentanyl Screen Ur Barbiturates Screen Ur Phencyclidine Scrn Ur Amphetamines Screen U Benzodiazepines Scrn Urine Cocaine Screen U Marijuana (THC) Screen Assessment and Plan (1) CONNIE (acute kidney injury): Status: Acute Plan 79-year-old female with no significant past medical history; has not seen physician in a while; presented to the hospital with a chief complaint of fall. Admitted for following Fall: Mechanical in nature. Denies any LOC. CT head showed no acute findings Fall precautions PT/OT when ready for discharge CONNIE: Unknown baseline creatinine Creatinine on presentation was 2.4 Continue gentle IV fluids Nephrology consult Sepsis: Hypothermia: Pt T092.7-> placed on maxwell hugger-> Improving No clear source of infection covered witrh ceftriaxone empirically. ID consult. Pt received 30cc/kg IVF c/w maintainance fluids Mild Transaminitis:CT abd: liver and GB wnl; sent hepatitis panel. Trend liver enzymes. Hypernatremia: Sodium on presentation 148. Patient received IV fluids in the ER. Will repeat BMP Hyperkalemia: Given Lokelma. Insulin, dextrose. No significant changes on EKG. Will repeat levels. Hypoglycemia: Glucose on presentation was 47. Concern for poor intake. Glucose levels improving. Adult failure to thrive: Patient appears to have poor intake Nutrition consult Pancytopenia: Unknown baseline values. hematology consult DVT prophylaxis: SubQ heparin Code status: Full code Quality Stroke Does the patient have a stroke diagnosis?: No VTE Prior VTE?: No VTE Risk Level:: Medical - moderate - high VTE Device Contraindication: Treatment Not Indicated VTE Drug Contraindication: N/A - Med Ordered
[2024-11-24] MEDS: Lactated Ringers 1,000 ML 250 ML IVCONT (22:00)
[2024-11-24 22:38] LABS: Anion Gap 15 (12-20); Blood Urea Nitrogen 63 mg/dL (9-16); Calcium 8.1 mg/dL (8.4-10.2); Carbon Dioxide 27 mmol/L (22-29); Chloride 111 mmol/L (96-108); Creatinine Clr Calc Pharmacy 8.2; Estimated Glomerular Filt Rate 19; Glucose Random 114 mg/dL (60-115); Sodium 147 mmol/L (135-145)
--- NOTE | 2024-11-24 22:59 | PC.NURSE ---
late entry. this rn assumed care of pt 2114. rectal temp was 94.9F, krystyna armendariz suggested and initiated per md approval. ivf infusing per mar. bp as documented. pt is alert and responsive denies any pain/discomfort. pt is not incontinent, no urine output since previous straight cath. per md to insert metcalf catheter, attempting at this time. currently bp reads 89/53, MD Alvares aware.
[2024-11-24] MEDS: Dextrose 5 % and 0.45 % NaCl 1,000 ML 100 ML IVCONT (23:23)
[2024-11-25] VITALS (26 sets, daily range): BP systolic 70–118; BP diastolic 42–73; PULSE 73–99; RESP 12–25; TEMP 35.4–37; O2SAT 92–99; BMI 14.5
[2024-11-25] MEDS: Lactated Ringers 1,000 ML 250 ML IVCONT (00:37)
--- NOTE | 2024-11-25 00:41 | PC.NURSE ---
verbal consent given to t/w to speak with son and DIL Todd and Marry Collins. Marry [phone] Todd [phone]
[2024-11-25] MEDS: Insulin Regular, Human 100 UNIT/ML 10 ML VIAL IVPUSH (02:46)
[2024-11-25] MEDS: Dextrose 50 % 25 GM/50 ML SYRINGE IVPUSH (02:46)
[2024-11-25] MEDS: Lactated Ringers 500 ML 999 ML IV (02:52)
[2024-11-25 03:58] LABS: Lactic Acid 2.7 mmol/L (0.5-2.0)
[2024-11-25 04:20] LABS: Hemoglobin 8.8 g/dl (12.0-16.0); PLT CLUMP 1; SCAN SMEAR FLAG 1
[2024-11-25 04:22] LABS: Eosinophils Percent Auto 0.5 % (0-4); Hematocrit 27.1 % (37.0-47.0); Imm Gran Abs Auto 0.01 X10*3/uL (0.00-0.03); Imm Gran Pct Auto 0.5 % (0.0-0.4); Lymphocytes Absolute Auto 0.3 X10*3/uL (1.2-4.9); Lymphocytes Percent Auto 13.4 % (20-40); MANUAL DIFF FLAG SCAN; Mean Corpuscular HGB Conc 32.5 g/dl (31.0-35.0); Mean Corpuscular Hemoglobin 35.1 pg (27.0-33.0); Mean Platelet Volume 11.3 fL (9.4-12.3); Monocytes Absolute Auto 0.2 X10*3/uL (0.1-1.2); Monocytes Percent Auto 9.1 % (2-11); Neutrophils Absolute Auto 1.4 x10*3/uL (2.0-8.3); Neutrophils Percent Auto 76.5 % (45-73); Platelet Count 82 X10*3/uL (160-400); Red Blood Count 2.51 X10*6/uL (4.20-5.50); Red Cell Distribution Width 15.5 % (11.0-16.0); White Blood Count 1.9 X10*3/uL (4.8-10.8)
[2024-11-25 04:27] LABS: SLIDE REVIEW VERIFIED
[2024-11-25] MEDS: 0.9 % Sodium Chloride 1,000 ML 100 ML IVCONT (04:27)
[2024-11-25 04:47] LABS: Alanine Aminotransferase 39 U/L (0-31); Albumin Level 2.1 g/dL (3.5-5.0); Alkaline Phosphatase 75 U/L (39-117); Anion Gap 11 (12-20); Aspartate Amino Transferase 53 U/L (5-31); Bilirubin Total 0.4 mg/dL (0.0-1.0); Blood Urea Nitrogen 62 mg/dL (9-16); Calcium 7.7 mg/dL (8.4-10.2); Carbon Dioxide 27 mmol/L (22-29); Chloride 110 mmol/L (96-108); Creatinine Clr Calc Pharmacy 8.9; Estimated Glomerular Filt Rate 21; Glucose Random 202 mg/dL (60-115); Potassium 5.4 mmol/L (3.3-5.1); Sodium 143 mmol/L (135-145); Total Protein 3.4 g/dL (6.5-8.0)
[2024-11-25 05:02] LABS: Thyroid Stimulating Hormone 2.26 uIU/mL (0.32-4.0)
[2024-11-25 05:34] LABS: Reflex Lactate? Lactic Acid Added
--- NOTE | 2024-11-25 06:32 | PC.NURSE ---
pt placed to hospital bed. krystyna armendariz remains in place. switched to oxymask as pt is mouth breathing mainly. bed alarm on, call terrazas within reach.
[2024-11-25 06:38] LABS: ~Lactic Acid-LAB USE ONLY 3.1 mmol/L (0.5-2.0)
[2024-11-25 07:20] LABS: Glucose, Whole Blood 76 mg/dL (60-115)
--- NOTE | 2024-11-25 07:37 | PC.NURSE ---
BP 87/53, MD Hendricks made aware.
[2024-11-25] MEDS: cefTRIAXone sodium 1 GM VIAL IVPUSH (07:48)
[2024-11-25 07:52] LABS: Lactic Acid 1.8 mmol/L (0.5-2.0)
[2024-11-25] MEDS: Albumin Human 25 % 50 ML 100 ML IV ×2 (07:59→08:09)
[2024-11-25 08:02] LABS: Reflex Lactate? 2 Y
--- NOTE | 2024-11-25 08:03 | PC.NURSE ---
Pt pulling off bare hugger, refusing to wear it. Pt attempting to pull at IV lines/tubing. Redirected at this time.
--- NOTE | 2024-11-25 08:12 | PC.NURSE ---
Admission completed by this RN. Plan of care initiated
[2024-11-25 08:21] LABS: HBc Num1 0.07 S/CO (0.00-0.79); HBsAGNum1 0.35 S/CO (0.00-0.99); Hepatitis A Antibody IgM 0.15 Index (0-0.79); Hepatitis B Core Antibody Nonreactive (Nonreactive); Hepatitis B Surface Antigen Negative (Negative); ~HepC Num1 0.07 S/CO (0.00-0.79); ~Hepatitis A Antibody IgM Nonreactive (Nonreactive); ~Hepatitis B Surface Antibody NONREACTIVE (Nonreactive); ~Hepatitis C Antibody Nonreactive (Nonreactive)
--- NOTE | 2024-11-25 08:46 | P.CNHO_ITS ---
Subjective - Subjective Chief complaint: Unable to provide Patient: new to practice Consult date: 11/25/24 Primary Care Provider: Unknown Physician Head Of Commission Department Utilized?: No - [place] Speaking HPI - Consult Narrative Reason for consult: Macrocytic anemia/pancytopenia Narrative: Linda Collins is a 79 year old female with no significant past medical history; has not seen physician in a while; presented to the hospital with a chief complaint of fall. Most of the history obtained from the records and the staff. Reportedly patient had a fall heard by the landlord, subsequently sent her to the hospital for further evaluation Labs revealed pancytopenia with macrocytosis. Oncology Screenings - ECOG Performance Status ECOG Performance Status: 4 PMFSH Social History: Social History Living Situation History: Household Members: Unknown / Unable to asses Housing: Unknown / Unable to asses Tobacco History: Patient Tobacco Use Status: Tobacco use Unknown Occupation Assessmet: service: No Home Medications and Allergies Current Medications: Current Medications Acetaminophen (Acetaminophen 325 Mg Tablet) 650 mg PO Q6H PRN PRN Reason: Pain, Mild 1-3,fever,headache Calcium Carbonate (Calcium Carbonate 750 Mg Tab.Chew) 750 mg PO Q4H PRN PRN Reason: Heartburn Ceftriaxone Sodium (Ceftriaxone Sodium 1 Gm Vial) 1 gm IVPUSH Q24H [facility] Last Admin: 11/25/24 07:48 Dose: 1 gm Dextrose/Sodium Chloride (D51/2ns) 1,000 mls @ 100 mls/hr IVCONT .Q10H [facility] Last Admin: 11/24/24 23:23 Dose: 100 mls/hr Albumin Human (Kedbumin 25 %) 50 mls @ 100 mls/hr IV Q30M [facility] Stop: 11/25/24 08:59 Last Infusion: 11/25/24 08:29 Dose: Infused Magnesium Hydroxide (Milk Of Magnesia 30 Ml Oral.Susp) 30 ml PO DAILY PRN PRN Reason: Constipation Melatonin (Melatonin 3 Mg Tablet) 6 mg PO BEDTIME PRN PRN Reason: Insomnia Sodium Chloride (0.9 % Sodium Chloride Flush 3 Ml Syringe) 3 ml IVFLUSH QSHIFT [facility] Last Admin: 11/25/24 08:04 Dose: Not Given Home Medications ?Medication ?Instructions ?Recorded ?Confirmed ?Type No Known Home Meds 11/25/24 11/25/24 History Allergies Allergy/AdvReac Type Severity Reaction Status Date / Time No Known Allergies Allergy Verified 11/24/24 17:55 Physical Exam Vital signs: Vital Signs Temp 95.7 F L 11/25/24 07:32 Pulse 73 11/25/24 08:29 Resp 12 11/25/24 08:29 BP 79/50 L 11/25/24 08:29 Pulse Ox 99 11/25/24 08:29 O2 Del Method Oxymask 11/25/24 08:29 O2 Flow Rate 2 11/25/24 07:32 Intake & Output 11/24/24 11/25/24 11/25/24 18:59 06:59 18:59 Intake Total 50 / 4618.333 4568.333 / 4618.333 366.667 / 366.667 Balance 50 / 4618.333 4568.333 / 4618.333 366.667 / 366.667 Intake: Intake, IV Amount 50 / 4618.333 4568.333 / 4618.333 366.667 / 366.667 0.9 % Sodium Chloride 1,000 ml 1000 / 1000 @ 999 mls/hr IV .Q1H1M ETHEL Rx#: [id number] Albumin Human 25 % 50 ml @ 100 66.667 / 66.667 mls/hr IV Q30M ETHEL Rx#: [id number] Calcium Gluconate/NaCl,Iso-Osm 100 / 100 2 gm In 100 ml @ 400 mls/hr IV ONCE ONE Rx#:[id number] Lactated Ringers 1,000 ml @ 999 1000 / 1000 mls/hr IV .Q1H1M ETHEL Rx#: [id number] Lactated Ringers 500 ml @ 999 500 / 500 mls/hr IV .Q31M ETHEL Rx#: [id number] Piperacillin Sodium/Tazobactam 50 / 50 3.375 gm In 0.9 % Sodium Chloride 50 ml @ 100 mls/hr IV ONCE ONE Rx#:[id number] vancomycin HCL 500 mg In 0.9 % 110 / 110 Sodium Chloride 100 ml @ 110 mls/hr IV ONCE ONE Rx#: [id number] 0.9 % Sodium Chloride 1,000 ml 300 / 300 @ 100 mls/hr IVCONT .Q10H ETHEL Rx#:[id number] Lactated Ringers 1,000 ml @ 250 1858.333 / 1858.333 mls/hr IVCONT .Q4H [facility] Rx#: [id number] Other: Weight 27.7 kg 42 kg [place] Weight in Grams 60796 Weight 42 kg - Constitutional Present: no acute distress, chronically ill appearing - Routine HEENT Exam Eye: Present: conjunctivae pale - Routine Neck Exam Absent: swelling - Routine Respiratory Exam Present: decreased breath sounds - Routine Cardiovascular Exam Cardiovascular: Present: S1, S2 Hem/Onc Consult Result - Labs CBC & Chem 7: 11/26/24 05:26 11/26/24 05:26 Labs: Short CBC 11/24/24 11/25/24 Range/Units 17:56 03:27 WBC 2.6 L 1.9 L (4.8-10.8) X10*3/uL Hgb 12.3 8.8 L D (12.0-16.0) g/dl Hct 37.7 27.1 L D (37.0-47.0) % Plt Count 108 L 82 L (160-400) X10*3/uL BMP 11/24/24 11/24/24 11/24/24 17:56 21:02 22:16 Sodium 148 H 148 H 147 H Potassium 6.6 H* 6.1 H* 6.0 H* Chloride 109 H 111 H 111 H Carbon Dioxide 28 27 27 BUN 75 H 66 H 63 H Creatinine 2.77 H 2.45 H 2.41 H Calcium 8.3 L 8.1 L 8.1 L 11/25/24 03:27 Sodium 143 Potassium 5.4 H Chloride 110 H Carbon Dioxide 27 BUN 62 H Creatinine 2.23 H Calcium 7.7 L Cardiac Enzymes 11/24/24 Range/Units 17:56 Total Creatine Kinase 283 H (26-140) U/L Liver Function 11/24/24 11/25/24 Range/Units 17:56 03:27 Total Bilirubin 0.6 0.4 (0.0-1.0) mg/dL AST 79 H 53 H (5-31) U/L ALT 55 H 39 H (0-31) U/L Alkaline Phosphatase 95 75 (39-117) U/L Albumin 2.9 L 2.1 L (3.5-5.0) g/dL Urine 11/24/24 Range/Units 19:06 Urine Color Yellow Urine Appearance Clear Urine pH 5.5 (5.0-9.0) Ur Specific [place] 1.015 (1.005-1.025) Urine Protein 100 (2+) H (Neg-Trace) mg/dL Urine Glucose (UA) Negative (Negative) mg/dL Assessment and Plan Patient Active problem list reviewed?: Yes (1) Macrocytic anemia Status: Acute Assessment and plan: 1. This is a 79-year-old woman with Alzheimer's dementia, protein calorie malnutrition who is admitted after a fall. She was noted to have macrocytic anemia renal failure. Imaging with CT chest/abdomen and pelvis performed 11/24/2024 shows no hepatosplenomegaly, lymphadenopathy or any acute findings. Her anemia/pancytopenia is multifactorial. She does have low vitamin B12 and folic acid, she has been started on oral supplementation. Other possibilities include chronic kidney disease, myelodysplastic syndrome, lymphoma and plasma cell dyscrasia. Her haptoglobin is low which can be seen with megaloblastic anemia. Further blood work has been submitted. Thank you for the consultation. - Time Spent With Patient Time Spent with Patient (in minutes): 15
--- NOTE | 2024-11-25 09:08 | MHC.CM.PN ---
Addendum entered by Ai Rojas 11/25/24 12:21: CM was unable to attempt a HCP; Patient is in ICU. CM will continue to follow. Original Note: Patient is listed as a poor Historian; CM spoke with Daughter/YVETTE @ [phone]. Patient lives alone in an apartment and she uses a cane to assist with mobility. Per Yvette, who has been in contact with [facility], Patient will not allow services to come to her home(she will not even allow Yvette in her bedroom nor to have a de la torre to her apartment). Patient is listed as, self pay; Yvette believes that she has Medicare and is willing to work with [employer] for a [place] toward likely need for LTC).CM spoke with the last PCP that Yvette is aware of ([facility] @ [phone]) and she is listed as inactive; she has not been to that office in over 10 years. Yvette expresses concerns for early Dementia r/t her mother's repetitive questions and Patient losing her car because she forgot to make the payments. CM will meet with Patient to determine if Patient is able and willing to do a HCP, otherwise CM has told Yvette that Guardianship and Conservatorship may be needed(Yvette is willing to assist). CM will follow.
--- NOTE | 2024-11-25 09:18 | PC.NURSE ---
Manual BP 70/50, MD Hendricks made aware.
[2024-11-25 09:47] LABS: Immature Retic Fraction 8.1 % (3.0-15.9); Retic HGB Equivalent 34.8 pg (30.0-35.0); Reticulocyte Percent 0.5 % (0.5-1.8); Reticulocytes Absolute 0.012 X10*6/uL (0.026-0.095)
[2024-11-25 09:57] LABS: Lactate Dehydrogenase 183 U/L (122-220)
[2024-11-25 09:59] LABS: ~Lactic Acid-LAB USE ONLY 1.3 mmol/L (0.5-2.0)
[2024-11-25 10:04] LABS: Haptoglobin 15 mg/dL (63-273)
[2024-11-25] MEDS: Albumin Human 25 % 100 ML IV ×2 (10:09→10:58)
[2024-11-25] MEDS: Dextrose 5 % and 0.45 % NaCl 1,000 ML 100 ML IVCONT (10:13)
--- NOTE | 2024-11-25 10:17 | PC.NURSE ---
Pt has 2 skin tears to right elbow. Reddened discoloration noted to bilateral forearms.
[2024-11-25 10:32] LABS: Folate 2.7 ng/mL (> or = 4.0); Vitamin B12 221 pg/mL (200-900)
[2024-11-25 10:39] LABS: Cancel Lactic Acid Canceled
[2024-11-25 10:48] LABS: Cortisol Random 11.6 ug/dL
--- NOTE | 2024-11-25 10:53 | P.PNIM_ITS ---
Subjective Subjective Date of Service: 11/25/24 Review of Systems Review of Systems: Yes Unobtainable due to mental condition Physical Exam 2 Vital Signs: Vital Signs: Last Vital Signs Temp 95.7 F L 11/25/24 07:32 Pulse 78 11/25/24 10:41 Resp 12 11/25/24 08:29 BP 83/45 L 11/25/24 10:41 Pulse Ox 99 11/25/24 08:29 O2 Del Method Oxymask 11/25/24 08:29 O2 Flow Rate 2 11/25/24 07:32 BMI result Body Mass Index 14.5 Alert, oriented to self, very confused, frail and ill-appearing, 5 cm mass on left chest wall immobile, abdomen soft nontender Objective Data Active Medications Acetaminophen (Acetaminophen 325 Mg Tablet) 650 mg PO Q6H PRN PRN Reason: Pain, Mild 1-3,fever,headache Calcium Carbonate (Calcium Carbonate 750 Mg Tab.Chew) 750 mg PO Q4H PRN PRN Reason: Heartburn Ceftriaxone Sodium (Ceftriaxone Sodium 1 Gm Vial) 1 gm IVPUSH Q24H [facility] Last Admin: 11/25/24 07:48 Dose: 1 gm Documented By: STEW Cyanocobalamin (Cyanocobalamin (Vitamin B-12) 1,000 Mcg Tablet) 1,000 mcg PO DAILY [facility] Folic Acid (Folic Acid 1 Mg Tablet) 1 mg PO DAILY [facility] Dextrose/Sodium Chloride (D51/2ns) 1,000 mls @ 100 mls/hr IVCONT .Q10H [facility] Last Admin: 11/25/24 10:13 Dose: 100 mls/hr Documented By: STEW Albumin Human (Kedbumin 25 %) 100 mls @ 100 mls/hr IV Q6H [facility] Stop: 11/25/24 16:59 Last Admin: 11/25/24 10:09 Dose: 100 mls/hr Documented By: STEW Folic Acid 1 mg/ Sodium (Chloride) 50.2 mls @ 100.4 mls/hr IV DAILY [facility] Stop: 11/27/24 09:29 Magnesium Hydroxide (Milk Of Magnesia 30 Ml Oral.Susp) 30 ml PO DAILY PRN PRN Reason: Constipation Melatonin (Melatonin 3 Mg Tablet) 6 mg PO BEDTIME PRN PRN Reason: Insomnia Multivitamins/Vitamin C (Multivitamin Tablet) 1 tab PO DAILY [facility] Sodium Chloride (0.9 % Sodium Chloride Flush 3 Ml Syringe) 3 ml IVFLUSH QSHIFT ETHEL Last Admin: 11/25/24 08:04 Dose: Not Given Documented By: STEW Non-Admin Reason: IV Running Labs 11/25/24 03:27 11/25/24 03:27 Labs: Laboratory Results - last 24 hr 11/24/24 11/24/24 11/24/24 17:56 18:00 18:42 MCV 106.5 H MCH 34.7 H MCHC 32.6 RDW 15.4 Plt Count 108 L MPV 10.9 Immature Gran % (Auto) 0.4 Neut % (Auto) 84.6 H Lymph % (Auto) 7.3 L [place] % (Auto) 7.7 Eos % (Auto) 0.0 Baso % (Auto) 0.0 Lymph # (Auto) 0.2 L [place] # (Auto) 0.2 Eos # (Auto) 0.0 Baso # (Auto) 0.0 Abs Immat Gran (auto) 0.01 Absolute Neuts (auto) 2.2 Absolute Nucleated RBC 0.000 Nucleated RBC % (auto) 0.0 Smear Tech's Comments Absolute Retic Percent Retic Immature Retic Fraction Retic Hgb Equivalent VBG pH 7.33 VBG pCO2 53 VBG pO2 73 VBG HCO3 28 H VBG O2 Saturation 91.0 VBG Base Excess 2.0 Anion Gap 18 Estim Creat Clear Calc 7.1 Estimated GFR 17 POC Glucose 47 L* Random Glucose 58 L* Haptoglobin Lactic Acid 1.4 Lactic Acid F/U @ 2Hr Lactic Acid F/U @ 4Hr Calcium 8.3 L Magnesium 2.4 Total Bilirubin 0.6 AST 79 H ALT 55 H Alkaline Phosphatase 95 Lactate Dehydrogenase Total Creatine Kinase 283 H Troponin I High Sens 8.6 C-Reactive Protein 1.33 H Total Protein 4.9 L Albumin 2.9 L Lipase 55 Vitamin B12 Folate TSH Random Cortisol Urine Color Urine Appearance Urine pH Ur Specific [place] Urine Protein Urine Glucose (UA) Urine Ketones Urine Blood Urine Nitrite Ur Leukocyte Esterase Urine RBC Urine WBC Ur Squamous Epith Cells Urine Bacteria Hyaline Casts Urine Opiates Screen Ur Buprenorphine Scrn Ur Oxycodone Screen Urine Methadone Screen Urine Fentanyl Screen Ur Barbiturates Screen Ur Phencyclidine Scrn Ur Amphetamines Screen U Benzodiazepines Scrn Urine Cocaine Screen U Marijuana (THC) Screen Hepatitis A IgM Ab Hep Bs Antigen Hep Bs Antibody Hep B Core Total Ab Hepatitis C Ab (EIA) 11/24/24 11/24/24 11/24/24 19:06 19:07 20:45 MCV MCH MCHC RDW Plt Count MPV Immature Gran % (Auto) Neut % (Auto) Lymph % (Auto) [place] % (Auto) Eos % (Auto) Baso % (Auto) Lymph # (Auto) [place] # (Auto) Eos # (Auto) Baso # (Auto) Abs Immat Gran (auto) Absolute Neuts (auto) Absolute Nucleated RBC Nucleated RBC % (auto) Smear Tech's Comments Absolute Retic Percent Retic Immature Retic Fraction Retic Hgb Equivalent VBG pH VBG pCO2 VBG pO2 VBG HCO3 VBG O2 Saturation VBG Base Excess Anion Gap Estim Creat Clear Calc Estimated GFR POC Glucose 63 113 Random Glucose Haptoglobin Lactic Acid Lactic Acid F/U @ 2Hr Lactic Acid F/U @ 4Hr Calcium Magnesium Total Bilirubin AST ALT Alkaline Phosphatase Lactate Dehydrogenase Total Creatine Kinase Troponin I High Sens C-Reactive Protein Total Protein Albumin Lipase Vitamin B12 Folate TSH Random Cortisol Urine Color Yellow Urine Appearance Clear Urine pH 5.5 Ur Specific [place] 1.015 Urine Protein 100 (2+) H Urine Glucose (UA) Negative Urine Ketones Trace Urine Blood Negative Urine Nitrite Negative Ur Leukocyte Esterase Negative Urine RBC 0-2 Urine WBC 0-5 Ur Squamous Epith Cells 0-2 Urine Bacteria None Seen Hyaline Casts 0-2 Urine Opiates Screen Not Detected Ur Buprenorphine Scrn Not Detected Ur Oxycodone Screen Not Detected Urine Methadone Screen Not Detected Urine Fentanyl Screen Not Detected Ur Barbiturates Screen Not Detected Ur Phencyclidine Scrn Not Detected Ur Amphetamines Screen Not Detected U Benzodiazepines Scrn Not Detected Urine Cocaine Screen Not Detected U Marijuana (THC) Screen Not Detected Hepatitis A IgM Ab Hep Bs Antigen Hep Bs Antibody Hep B Core Total Ab Hepatitis C Ab (EIA) 11/24/24 11/24/24 11/25/24 21:02 22:16 03:27 MCV 108.0 H MCH 35.1 H MCHC 32.5 RDW 15.5 Plt Count 82 L MPV 11.3 Immature Gran % (Auto) 0.5 H Neut % (Auto) 76.5 H Lymph % (Auto) 13.4 L [place] % (Auto) 9.1 Eos % (Auto) 0.5 Baso % (Auto) 0.0 Lymph # (Auto) 0.3 L [place] # (Auto) 0.2 Eos # (Auto) 0.0 Baso # (Auto) 0.0 Abs Immat Gran (auto) 0.01 Absolute Neuts (auto) 1.4 L Absolute Nucleated RBC 0.000 Nucleated RBC % (auto) 0.0 Smear Tech's Comments VERIFIED Absolute Retic Percent Retic Immature Retic Fraction Retic Hgb Equivalent VBG pH VBG pCO2 VBG pO2 VBG HCO3 VBG O2 Saturation VBG Base Excess Anion Gap 16 15 11 L Estim Creat Clear Calc 8.1 8.2 8.9 Estimated GFR 19 19 21 POC Glucose Random Glucose 105 114 202 H Haptoglobin Lactic Acid 2.7 H* Lactic Acid F/U @ 2Hr Lactic Acid F/U @ 4Hr Calcium 8.1 L 8.1 L 7.7 L Magnesium Total Bilirubin 0.4 AST 53 H ALT 39 H Alkaline Phosphatase 75 Lactate Dehydrogenase Total Creatine Kinase Troponin I High Sens C-Reactive Protein Total Protein 3.4 L Albumin 2.1 L Lipase Vitamin B12 Folate TSH 2.26 Random Cortisol Urine Color Urine Appearance Urine pH Ur Specific [place] Urine Protein Urine Glucose (UA) Urine Ketones Urine Blood Urine Nitrite Ur Leukocyte Esterase Urine RBC Urine WBC Ur Squamous Epith Cells Urine Bacteria Hyaline Casts Urine Opiates Screen Ur Buprenorphine Scrn Ur Oxycodone Screen Urine Methadone Screen Urine Fentanyl Screen Ur Barbiturates Screen Ur Phencyclidine Scrn Ur Amphetamines Screen U Benzodiazepines Scrn Urine Cocaine Screen U Marijuana (THC) Screen Hepatitis A IgM Ab Hep Bs Antigen Hep Bs Antibody Hep B Core Total Ab Hepatitis C Ab (EIA) 11/25/24 11/25/24 11/25/24 05:59 07:16 07:32 MCV MCH MCHC RDW Plt Count MPV Immature Gran % (Auto) Neut % (Auto) Lymph % (Auto) [place] % (Auto) Eos % (Auto) Baso % (Auto) Lymph # (Auto) [place] # (Auto) Eos # (Auto) Baso # (Auto) Abs Immat Gran (auto) Absolute Neuts (auto) Absolute Nucleated RBC Nucleated RBC % (auto) Smear Tech's Comments Absolute Retic Percent Retic Immature Retic Fraction Retic Hgb Equivalent VBG pH VBG pCO2 VBG pO2 VBG HCO3 VBG O2 Saturation VBG Base Excess Anion Gap Estim Creat Clear Calc Estimated GFR POC Glucose 76 Random Glucose Haptoglobin Lactic Acid 1.8 Lactic Acid F/U @ 2Hr 3.1 H* Lactic Acid F/U @ 4Hr Calcium Magnesium Total Bilirubin AST ALT Alkaline Phosphatase Lactate Dehydrogenase Total Creatine Kinase Troponin I High Sens C-Reactive Protein Total Protein Albumin Lipase Vitamin B12 Folate TSH Random Cortisol Urine Color Urine Appearance Urine pH Ur Specific [place] Urine Protein Urine Glucose (UA) Urine Ketones Urine Blood Urine Nitrite Ur Leukocyte Esterase Urine RBC Urine WBC Ur Squamous Epith Cells Urine Bacteria Hyaline Casts Urine Opiates Screen Ur Buprenorphine Scrn Ur Oxycodone Screen Urine Methadone Screen Urine Fentanyl Screen Ur Barbiturates Screen Ur Phencyclidine Scrn Ur Amphetamines Screen U Benzodiazepines Scrn Urine Cocaine Screen U Marijuana (THC) Screen Hepatitis A IgM Ab Nonreactive Hep Bs Antigen Negative Hep Bs Antibody NONREACTIVE Hep B Core Total Ab Nonreactive Hepatitis C Ab (EIA) Nonreactive 11/25/24 09:36 MCV MCH MCHC RDW Plt Count MPV Immature Gran % (Auto) Neut % (Auto) Lymph % (Auto) [place] % (Auto) Eos % (Auto) Baso % (Auto) Lymph # (Auto) [place] # (Auto) Eos # (Auto) Baso # (Auto) Abs Immat Gran (auto) Absolute Neuts (auto) Absolute Nucleated RBC Nucleated RBC % (auto) Smear Tech's Comments Absolute Retic 0.012 L Percent Retic 0.5 Immature Retic Fraction 8.1 Retic Hgb Equivalent 34.8 VBG pH VBG pCO2 VBG pO2 VBG HCO3 VBG O2 Saturation VBG Base Excess Anion Gap Estim Creat Clear Calc Estimated GFR POC Glucose Random Glucose Haptoglobin 15 L Lactic Acid Lactic Acid F/U @ 2Hr Lactic Acid F/U @ 4Hr 1.3 Calcium Magnesium Total Bilirubin AST ALT Alkaline Phosphatase Lactate Dehydrogenase 183 Total Creatine Kinase Troponin I High Sens C-Reactive Protein Total Protein Albumin Lipase Vitamin B12 221 Folate 2.7 L TSH Random Cortisol 11.6 Urine Color Urine Appearance Urine pH Ur Specific [place] Urine Protein Urine Glucose (UA) Urine Ketones Urine Blood Urine Nitrite Ur Leukocyte Esterase Urine RBC Urine WBC Ur Squamous Epith Cells Urine Bacteria Hyaline Casts Urine Opiates Screen Ur Buprenorphine Scrn Ur Oxycodone Screen Urine Methadone Screen Urine Fentanyl Screen Ur Barbiturates Screen Ur Phencyclidine Scrn Ur Amphetamines Screen U Benzodiazepines Scrn Urine Cocaine Screen U Marijuana (THC) Screen Hepatitis A IgM Ab Hep Bs Antigen Hep Bs Antibody Hep B Core Total Ab Hepatitis C Ab (EIA) Assessment and Plan (1) CONNIE (acute kidney injury): Status: Acute Plan 79F does not follow with doctors, lives home alone, brought in after fall. daughter notes progressive dementia, paranoid behaviour, weight loss, loss of appetite, found to be FTT, lab abnormalities failure to thrive due to alzheimers dementia complicated by severe protein calorie malnutrition Further complicated by acute kidney injury, hyperkalemia, hypernatremia, B12 and folate deficiency with pancytopenia, hypoglycemia, hypotension Fluid resuscitation, B12 and folate supplement, multivitamin, does not appear to have infectious source but on empiric ceftriaxone Monitor labs Left chest wall/breast mass Patient reports being there for years but is unreliable No obvious metastatic sites on CT chest or abdomen Oncology eval DVT prophylaxis-mechanical due to cytopenias Full code reason for continued hospitalization: Hypotensive Quality Stroke Does the patient have a stroke diagnosis?: No VTE Prior VTE?: No VTE Risk Level:: Medical - moderate - high VTE Device Contraindication: Treatment Not Indicated VTE Drug Contraindication: N/A - Med Ordered
[2024-11-25] MEDS: Cyanocobalamin (Vitamin B-12) 1,000 MCG/ML VIAL 1000 MCG IM (10:58)
[2024-11-25 11:35] LABS: Glucose, Whole Blood 95 mg/dL (60-115)
--- NOTE | 2024-11-25 11:50 | PHA.MEDREC ---
Pharmacy Consult ? Medication Reconciliation Pharmacy has completed the medication reconciliation. Per patient, she does not take any medications at home.
--- NOTE | 2024-11-25 11:50 | PC.NURSE ---
Assumed care of this patient at 1100, patient currently has bed on med/tele floor but transfer on hold d/t patient's trending low BPs. Provider Dr. Hendricks currently in contact w/ ICU provider per previous RN Natalie. CC Robin aware of patient's situation. Patient resting quietly in bed, alert but confused. Pressures 70's-80's/40's Repositioned in bed, POC taken 95, albumin and D5 1/2 NS running @ 100.
--- NOTE | 2024-11-25 12:22 | PC.NURSE ---
Patient to be transferred to ICU. Daughter at bedside aware, requesting for social work to come to speak to patient about HCP.
--- NOTE | 2024-11-25 12:25 | PC.NURSE ---
attempted to call ICU for report, no answer, awaiting ICU orders. Bed assignment in.
[2024-11-25] MEDS: Folic Acid 1 MG in 0.9 % Sodium Chloride 50 ML 100.4 MG IV (12:41)
[2024-11-25 12:48] LABS: Alanine Aminotransferase 28 U/L (0-31); Albumin Level 3.3 g/dL (3.5-5.0); Alkaline Phosphatase 51 U/L (39-117); Anion Gap 7 (12-20); Aspartate Amino Transferase 36 U/L (5-31); Bilirubin Total 0.4 mg/dL (0.0-1.0); Blood Urea Nitrogen 59 mg/dL (9-16); Calcium 7.8 mg/dL (8.4-10.2); Carbon Dioxide 31 mmol/L (22-29); Chloride 110 mmol/L (96-108); Creatinine Clr Calc Pharmacy 13.4; Estimated Glomerular Filt Rate 21; Glucose Random 92 mg/dL (60-115); Magnesium 1.8 mg/dL (1.6-2.6); Phosphorus 3.8 mg/dL (2.7-4.5); Potassium 5.4 mmol/L (3.3-5.1); Sodium 143 mmol/L (135-145); Total Protein 4.3 g/dL (6.5-8.0)
[2024-11-25 12:50] LABS: Eosinophils Percent Auto 0.6 % (0-4); Hematocrit 22.8 % (37.0-47.0); Hemoglobin 7.1 g/dl (12.0-16.0); Imm Gran Abs Auto 0.01 X10*3/uL (0.00-0.03); Imm Gran Pct Auto 0.6 % (0.0-0.4); Lymphocytes Absolute Auto 0.3 X10*3/uL (1.2-4.9); Lymphocytes Percent Auto 16.2 % (20-40); MANUAL DIFF FLAG SCAN; Mean Corpuscular HGB Conc 31.1 g/dl (31.0-35.0); Mean Corpuscular Hemoglobin 34.6 pg (27.0-33.0); Mean Corpuscular Volume 111.2 fL (80.0-98.0); Mean Platelet Volume 10.9 fL (9.4-12.3); Monocytes Absolute Auto 0.2 X10*3/uL (0.1-1.2); Monocytes Percent Auto 13.8 % (2-11); Neutrophils Absolute Auto 1.2 x10*3/uL (2.0-8.3); Neutrophils Percent Auto 68.8 % (45-73); Platelet Count 70 X10*3/uL (160-400); Red Blood Count 2.05 X10*6/uL (4.20-5.50); Red Cell Distribution Width 15.9 % (11.0-16.0); SCAN SMEAR FLAG 1; White Blood Count 1.7 X10*3/uL (4.8-10.8)
--- NOTE | 2024-11-25 13:05 | PC.NURSE ---
Pt to be transferred to ICU when transport availale, in hospital bed [id number] Estes made aware, will do bedside report. No orders for medications at this time.
[2024-11-25] MEDS: Norepinephrine Bitartrate/D5W 8 MG/250 ML PLAST..BAG 3.94 MG IVCONT (13:15)
[2024-11-25 13:18] LABS: SLIDE REVIEW VERIFIED
--- NOTE | 2024-11-25 14:45 | PC.NURSE ---
Pt. transferred to ICU from ED at approx 1315- BP 73/50- levophed gtt started and titrated per AUG. Plan of care ongoing.
--- NOTE | 2024-11-25 14:51 | HO.SKINPHOTO ---
Addendum entered by Arik Fischer RN 11/25/24 18:40: R Buttock Pressure Injury Stage 2 with unknown yellow wound. Original Note: Location: R Hip Category: Pressure Injury Stage: Stage I
--- NOTE | 2024-11-25 15:09 | P.PNCC_ITS ---
Subjective Subjective Date of Service: 11/25/24 Interval History: 79-year-old lady with underlying Alzheimer's dementia, failure to thrive, development per now admitted on 11/24/2024 after mechanical fall and intravascular volume depletion. Patient with poor response to initial IV fluid resuscitation requiring initiation of pressor support and transferred to intensive care unit. Covered with empiric antibiotics with blood cultures pending. Critical Care Time (minutes): 45 Physical Exam 2 Vital Signs: Vital Signs: Last Vital Signs Temp 98.1 F 11/25/24 14:58 Pulse 81 11/25/24 14:58 Resp 21 H 11/25/24 14:58 BP 101/59 L 11/25/24 14:58 Pulse Ox 97 11/25/24 14:58 O2 Del Method Oxymask 11/25/24 14:58 O2 Flow Rate 2 11/25/24 14:58 BMI result Body Mass Index 14.5 Const: General: no acute distress, alert and awake Eyes: Sclerae: sclerae normal EOM: EOMs intact bilaterally Neck: Neck: Yes no lymphadenopathy, Yes trachea midline and Yes supple Resp: Effort & Inspection: normal respiratory effort and no respiratory distress Auscultation: clear to auscultation bilaterally Cardio: Rate: regular rate Rhythm: regular rhythm Heart sounds: no gallops, no murmurs and no rubs GI: Palpation (GI): Soft to palpation and Other GI palpation findings present ( Nontender) Auscultation: normal bowel sounds Extrem: General: Yes no pedal edema, No clubbing and No cyanosis Objective Data Labs 11/25/24 12:25 11/25/24 12:25 Labs: Laboratory Results - last 24 hr 11/24/24 11/24/24 11/24/24 17:56 18:00 18:42 WBC 2.6 L RBC 3.54 L Hgb 12.3 Hct 37.7 MCV 106.5 H MCH 34.7 H MCHC 32.6 RDW 15.4 Plt Count 108 L MPV 10.9 Immature Gran % (Auto) 0.4 Neut % (Auto) 84.6 H Lymph % (Auto) 7.3 L [place] % (Auto) 7.7 Eos % (Auto) 0.0 Baso % (Auto) 0.0 Lymph # (Auto) 0.2 L [place] # (Auto) 0.2 Eos # (Auto) 0.0 Baso # (Auto) 0.0 Abs Immat Gran (auto) 0.01 Absolute Neuts (auto) 2.2 Absolute Nucleated RBC 0.000 Nucleated RBC % (auto) 0.0 Smear Tech's Comments Absolute Retic Percent Retic Immature Retic Fraction Retic Hgb Equivalent VBG pH 7.33 VBG pCO2 53 VBG pO2 73 VBG HCO3 28 H VBG O2 Saturation 91.0 VBG Base Excess 2.0 Sodium 148 H Potassium 6.6 H* Chloride 109 H Carbon Dioxide 28 Anion Gap 18 BUN 75 H Creatinine 2.77 H Estim Creat Clear Calc 7.1 Estimated GFR 17 POC Glucose 47 L* Random Glucose 58 L* Haptoglobin Lactic Acid 1.4 Lactic Acid F/U @ 2Hr Lactic Acid F/U @ 4Hr Calcium 8.3 L Phosphorus Magnesium 2.4 Total Bilirubin 0.6 AST 79 H ALT 55 H Alkaline Phosphatase 95 Lactate Dehydrogenase Total Creatine Kinase 283 H Troponin I High Sens 8.6 C-Reactive Protein 1.33 H Total Protein 4.9 L Albumin 2.9 L Lipase 55 Vitamin B12 Folate TSH Random Cortisol Urine Color Urine Appearance Urine pH Ur Specific [place] Urine Protein Urine Glucose (UA) Urine Ketones Urine Blood Urine Nitrite Ur Leukocyte Esterase Urine RBC Urine WBC Ur Squamous Epith Cells Urine Bacteria Hyaline Casts Urine Opiates Screen Ur Buprenorphine Scrn Ur Oxycodone Screen Urine Methadone Screen Urine Fentanyl Screen Ur Barbiturates Screen Ur Phencyclidine Scrn Ur Amphetamines Screen U Benzodiazepines Scrn Urine Cocaine Screen U Marijuana (THC) Screen Hepatitis A IgM Ab Hep Bs Antigen Hep Bs Antibody Hep B Core Total Ab Hepatitis C Ab (EIA) 11/24/24 11/24/24 11/24/24 19:06 19:07 20:45 WBC RBC Hgb Hct MCV MCH MCHC RDW Plt Count MPV Immature Gran % (Auto) Neut % (Auto) Lymph % (Auto) [place] % (Auto) Eos % (Auto) Baso % (Auto) Lymph # (Auto) [place] # (Auto) Eos # (Auto) Baso # (Auto) Abs Immat Gran (auto) Absolute Neuts (auto) Absolute Nucleated RBC Nucleated RBC % (auto) Smear Tech's Comments Absolute Retic Percent Retic Immature Retic Fraction Retic Hgb Equivalent VBG pH VBG pCO2 VBG pO2 VBG HCO3 VBG O2 Saturation VBG Base Excess Sodium Potassium Chloride Carbon Dioxide Anion Gap BUN Creatinine Estim Creat Clear Calc Estimated GFR POC Glucose 63 113 Random Glucose Haptoglobin Lactic Acid Lactic Acid F/U @ 2Hr Lactic Acid F/U @ 4Hr Calcium Phosphorus Magnesium Total Bilirubin AST ALT Alkaline Phosphatase Lactate Dehydrogenase Total Creatine Kinase Troponin I High Sens C-Reactive Protein Total Protein Albumin Lipase Vitamin B12 Folate TSH Random Cortisol Urine Color Yellow Urine Appearance Clear Urine pH 5.5 Ur Specific [place] 1.015 Urine Protein 100 (2+) H Urine Glucose (UA) Negative Urine Ketones Trace Urine Blood Negative Urine Nitrite Negative Ur Leukocyte Esterase Negative Urine RBC 0-2 Urine WBC 0-5 Ur Squamous Epith Cells 0-2 Urine Bacteria None Seen Hyaline Casts 0-2 Urine Opiates Screen Not Detected Ur Buprenorphine Scrn Not Detected Ur Oxycodone Screen Not Detected Urine Methadone Screen Not Detected Urine Fentanyl Screen Not Detected Ur Barbiturates Screen Not Detected Ur Phencyclidine Scrn Not Detected Ur Amphetamines Screen Not Detected U Benzodiazepines Scrn Not Detected Urine Cocaine Screen Not Detected U Marijuana (THC) Screen Not Detected Hepatitis A IgM Ab Hep Bs Antigen Hep Bs Antibody Hep B Core Total Ab Hepatitis C Ab (EIA) 11/24/24 11/24/24 11/25/24 21:02 22:16 03:27 WBC 1.9 L RBC 2.51 L D Hgb 8.8 L D Hct 27.1 L D MCV 108.0 H MCH 35.1 H MCHC 32.5 RDW 15.5 Plt Count 82 L MPV 11.3 Immature Gran % (Auto) 0.5 H Neut % (Auto) 76.5 H Lymph % (Auto) 13.4 L [place] % (Auto) 9.1 Eos % (Auto) 0.5 Baso % (Auto) 0.0 Lymph # (Auto) 0.3 L [place] # (Auto) 0.2 Eos # (Auto) 0.0 Baso # (Auto) 0.0 Abs Immat Gran (auto) 0.01 Absolute Neuts (auto) 1.4 L Absolute Nucleated RBC 0.000 Nucleated RBC % (auto) 0.0 Smear Tech's Comments VERIFIED Absolute Retic Percent Retic Immature Retic Fraction Retic Hgb Equivalent VBG pH VBG pCO2 VBG pO2 VBG HCO3 VBG O2 Saturation VBG Base Excess Sodium 148 H 147 H 143 Potassium 6.1 H* 6.0 H* 5.4 H Chloride 111 H 111 H 110 H Carbon Dioxide 27 27 27 Anion Gap 16 15 11 L BUN 66 H 63 H 62 H Creatinine 2.45 H 2.41 H 2.23 H Estim Creat Clear Calc 8.1 8.2 8.9 Estimated GFR 19 19 21 POC Glucose Random Glucose 105 114 202 H Haptoglobin Lactic Acid 2.7 H* Lactic Acid F/U @ 2Hr Lactic Acid F/U @ 4Hr Calcium 8.1 L 8.1 L 7.7 L Phosphorus Magnesium Total Bilirubin 0.4 AST 53 H ALT 39 H Alkaline Phosphatase 75 Lactate Dehydrogenase Total Creatine Kinase Troponin I High Sens C-Reactive Protein Total Protein 3.4 L Albumin 2.1 L Lipase Vitamin B12 Folate TSH 2.26 Random Cortisol Urine Color Urine Appearance Urine pH Ur Specific [place] Urine Protein Urine Glucose (UA) Urine Ketones Urine Blood Urine Nitrite Ur Leukocyte Esterase Urine RBC Urine WBC Ur Squamous Epith Cells Urine Bacteria Hyaline Casts Urine Opiates Screen Ur Buprenorphine Scrn Ur Oxycodone Screen Urine Methadone Screen Urine Fentanyl Screen Ur Barbiturates Screen Ur Phencyclidine Scrn Ur Amphetamines Screen U Benzodiazepines Scrn Urine Cocaine Screen U Marijuana (THC) Screen Hepatitis A IgM Ab Hep Bs Antigen Hep Bs Antibody Hep B Core Total Ab Hepatitis C Ab (EIA) 11/25/24 11/25/24 11/25/24 05:59 07:16 07:32 WBC RBC Hgb Hct MCV MCH MCHC RDW Plt Count MPV Immature Gran % (Auto) Neut % (Auto) Lymph % (Auto) [place] % (Auto) Eos % (Auto) Baso % (Auto) Lymph # (Auto) [place] # (Auto) Eos # (Auto) Baso # (Auto) Abs Immat Gran (auto) Absolute Neuts (auto) Absolute Nucleated RBC Nucleated RBC % (auto) Smear Tech's Comments Absolute Retic Percent Retic Immature Retic Fraction Retic Hgb Equivalent VBG pH VBG pCO2 VBG pO2 VBG HCO3 VBG O2 Saturation VBG Base Excess Sodium Potassium Chloride Carbon Dioxide Anion Gap BUN Creatinine Estim Creat Clear Calc Estimated GFR POC Glucose 76 Random Glucose Haptoglobin Lactic Acid 1.8 Lactic Acid F/U @ 2Hr 3.1 H* Lactic Acid F/U @ 4Hr Calcium Phosphorus Magnesium Total Bilirubin AST ALT Alkaline Phosphatase Lactate Dehydrogenase Total Creatine Kinase Troponin I High Sens C-Reactive Protein Total Protein Albumin Lipase Vitamin B12 Folate TSH Random Cortisol Urine Color Urine Appearance Urine pH Ur Specific [place] Urine Protein Urine Glucose (UA) Urine Ketones Urine Blood Urine Nitrite Ur Leukocyte Esterase Urine RBC Urine WBC Ur Squamous Epith Cells Urine Bacteria Hyaline Casts Urine Opiates Screen Ur Buprenorphine Scrn Ur Oxycodone Screen Urine Methadone Screen Urine Fentanyl Screen Ur Barbiturates Screen Ur Phencyclidine Scrn Ur Amphetamines Screen U Benzodiazepines Scrn Urine Cocaine Screen U Marijuana (THC) Screen Hepatitis A IgM Ab Nonreactive Hep Bs Antigen Negative Hep Bs Antibody NONREACTIVE Hep B Core Total Ab Nonreactive Hepatitis C Ab (EIA) Nonreactive 11/25/24 11/25/24 11/25/24 09:36 11:31 12:25 WBC 1.7 L RBC 2.05 L Hgb 7.1 L Hct 22.8 L MCV 111.2 H MCH 34.6 H MCHC 31.1 RDW 15.9 Plt Count 70 L MPV 10.9 Immature Gran % (Auto) 0.6 H Neut % (Auto) 68.8 Lymph % (Auto) 16.2 L [place] % (Auto) 13.8 H Eos % (Auto) 0.6 Baso % (Auto) 0.0 Lymph # (Auto) 0.3 L [place] # (Auto) 0.2 Eos # (Auto) 0.0 Baso # (Auto) 0.0 Abs Immat Gran (auto) 0.01 Absolute Neuts (auto) 1.2 L Absolute Nucleated RBC 0.000 Nucleated RBC % (auto) 0.0 Smear Tech's Comments VERIFIED Absolute Retic 0.012 L Percent Retic 0.5 Immature Retic Fraction 8.1 Retic Hgb Equivalent 34.8 VBG pH VBG pCO2 VBG pO2 VBG HCO3 VBG O2 Saturation VBG Base Excess Sodium 143 Potassium 5.4 H Chloride 110 H Carbon Dioxide 31 H Anion Gap 7 L BUN 59 H Creatinine 2.24 H Estim Creat Clear Calc 13.4 Estimated GFR 21 POC Glucose 95 Random Glucose 92 Haptoglobin 15 L Lactic Acid Lactic Acid F/U @ 2Hr Lactic Acid F/U @ 4Hr 1.3 Calcium 7.8 L Phosphorus 3.8 Magnesium 1.8 Total Bilirubin 0.4 AST 36 H ALT 28 Alkaline Phosphatase 51 Lactate Dehydrogenase 183 Total Creatine Kinase Troponin I High Sens C-Reactive Protein Total Protein 4.3 L Albumin 3.3 L Lipase Vitamin B12 221 Folate 2.7 L TSH Random Cortisol 11.6 Urine Color Urine Appearance Urine pH Ur Specific [place] Urine Protein Urine Glucose (UA) Urine Ketones Urine Blood Urine Nitrite Ur Leukocyte Esterase Urine RBC Urine WBC Ur Squamous Epith Cells Urine Bacteria Hyaline Casts Urine Opiates Screen Ur Buprenorphine Scrn Ur Oxycodone Screen Urine Methadone Screen Urine Fentanyl Screen Ur Barbiturates Screen Ur Phencyclidine Scrn Ur Amphetamines Screen U Benzodiazepines Scrn Urine Cocaine Screen U Marijuana (THC) Screen Hepatitis A IgM Ab Hep Bs Antigen Hep Bs Antibody Hep B Core Total Ab Hepatitis C Ab (EIA) Progress Note: A&P Assessment and plan (1) CONNIE (acute kidney injury): Status: Acute (2) Intravascular volume depletion: Status: Acute (3) Hypotension: Status: Acute Plan Assessment: 79-year-old lady with underlying failure to swallow if and Alzheimer's dementia admitted with hypotension after mechanical fall also complicated by intravascular volume depletion. Plan: Neuro: No acute issues. Cardiac: Hypotension, appears to be related to intravascular volume depletion, continue to titrate off pressor support as tolerated. Pulmonary: No acute issues. Renal: CONNIE secondary to intravascular volume depletion, improving with IV fluids. Non oliguric. Continue to monitor renal indices and urine output. Endo: No acute issues. GI: No acute issues. ID: No evidence of sepsis, continue with empiric antibiotics while blood cultures are finalized. Heme/Onc: No acute issues. Psych: No acute issues. Miscellaneous: No acute issues. Prophylaxis: Heparin Diet: Regular Critical care time spent: 45 minutes Quality Stroke Does the patient have a stroke diagnosis?: No VTE Prior VTE?: No VTE Risk Level:: Medical - moderate - high VTE Device Contraindication: Treatment Not Indicated VTE Drug Contraindication: N/A - Med Ordered
[2024-11-25] MEDS: Dextrose 5 % and Lactated Ring 1,000 ML 125 ML IVCONT ×2 (16:13→23:21)
[2024-11-25] MEDS: 0.9 % Sodium Chloride Flush 3 ML SYRINGE IVFLUSH ×2 (16:24→23:23)
--- NOTE | 2024-11-25 18:42 | PC.NURSE ---
Assumed care of patient 1530 on 11/25/24 patient alert to self and hospital (cannot specify which hospital) confused on time and situation. on 2 L oxymask breathing relaxed even and unlabored, lungs sound clear. abdomen flat, non-tended, with active bowels. Sinus rhythm with frequent PACs with pitting edema to b/l ankles. Castaneda in place and patent with clear bright yellow urine approx 45-70/hr. cachectic in appearance with large mass to L chest which is firm to the touch. skin is brittle and paper-like, multiple skin tears and abrasions (see head to toe), extensive bruising, pressure injuries to R hip and R buttock. patient on levophed, D5LR started shortly after assuming care of patient per AUG. patient repositioned on routinely. RN to RN report given and handed off at 1900 on 11/25/24.
[2024-11-26] VITALS (38 sets, daily range): BP systolic 77–135; BP diastolic 40–80; PULSE 72–105; RESP 10–22; TEMP 35.8–36.4; O2SAT 90–100; BMI 14.5
--- NOTE | 2024-11-26 03:25 | PC.NURSE ---
Assumed care of patient Patient admitted for CONNIE, FTT, had fall at home prior to admission. Rene Trujillo&Ox2, name and hospital 9
--- NOTE | 2024-11-26 03:30 | PC.NURSE ---
Assumed care of patient at 1900 Admitted for CONNIE, FTT, fell at home prior to admission. Patient A&Ox2 , person, hospital, (does not know name of hospital) SR with PAC's on telemetry, LS clear, on oxymask 1L O2 sats 97%. Abdomen flat, nontender, + BSx4. Castaneda in place draining pale yellow urine. Patient has extensive bruising , St I right hip, St II right buttock, foam dressing CDI. Red boggy heels, foam dressings/ offloaded with pillows. Patient is has IVF and Levophed infusing. Denies pain, resting comfortable at present time.
[2024-11-26 05:57] LABS: Imm Gran Abs Auto 0.01 X10*3/uL (0.00-0.03); Imm Gran Pct Auto 0.4 % (0.0-0.4); MANUAL DIFF FLAG SCAN; Mean Corpuscular HGB Conc 31.3 g/dl (31.0-35.0); PLT CLUMP 1; Red Cell Distribution Width 15.6 % (11.0-16.0); SCAN SMEAR FLAG 1
[2024-11-26 05:59] LABS: Eosinophils Percent Auto 1.8 % (0-4); Hematocrit 30.7 % (37.0-47.0); Hemoglobin 9.6 g/dl (12.0-16.0); Lymphocytes Absolute Auto 0.6 X10*3/uL (1.2-4.9); Lymphocytes Percent Auto 25.4 % (20-40); Mean Corpuscular Hemoglobin 34.8 pg (27.0-33.0); Mean Corpuscular Volume 111.2 fL (80.0-98.0); Mean Platelet Volume 10.5 fL (9.4-12.3); Monocytes Absolute Auto 0.4 X10*3/uL (0.1-1.2); Monocytes Percent Auto 16.1 % (2-11); Neutrophils Absolute Auto 1.3 x10*3/uL (2.0-8.3); Neutrophils Percent Auto 56.3 % (45-73); Platelet Count 102 X10*3/uL (160-400); Red Blood Count 2.76 X10*6/uL (4.20-5.50); White Blood Count 2.2 X10*3/uL (4.8-10.8)
[2024-11-26 06:07] LABS: INTERNATIONAL NORM RATIO 1.1 (0.9-1.1); Prothrombin Time 12.5 SEC (10.9-12.4)
[2024-11-26] MEDS: cefTRIAXone sodium 1 GM VIAL IVPUSH (06:11)
[2024-11-26] MEDS: Dextrose 5 % and Lactated Ring 1,000 ML 125 ML IVCONT ×3 (06:13→21:52)
[2024-11-26 06:14] LABS: Anion Gap 10 (12-20); Blood Urea Nitrogen 49 mg/dL (9-16); Calcium 7.8 mg/dL (8.4-10.2); Carbon Dioxide 28 mmol/L (22-29); Chloride 111 mmol/L (96-108); Creatinine Clr Calc Pharmacy 14.7; Estimated Glomerular Filt Rate 23; Glucose Random 128 mg/dL (60-115); Magnesium 1.7 mg/dL (1.6-2.6); Phosphorus 3.4 mg/dL (2.7-4.5); Potassium 4.8 mmol/L (3.3-5.1); Sodium 144 mmol/L (135-145)
[2024-11-26 06:15] LABS: SLIDE REVIEW VERIFIED
[2024-11-26] MEDS: 0.9 % Sodium Chloride Flush 3 ML SYRINGE IVFLUSH ×3 (07:44→19:42)
[2024-11-26] MEDS: Multivitamin TABLET 1 TAB PO (07:44)
[2024-11-26] MEDS: Albumin Human 25 % 50 ML 100 ML IV ×2 (07:44→10:17)
[2024-11-26] MEDS: Folic Acid 1 MG TABLET PO (07:44)
[2024-11-26] MEDS: Cyanocobalamin (Vitamin B-12) 1,000 MCG TABLET 1000 MCG PO (07:44)
[2024-11-26] MEDS: Folic Acid 1 MG in 0.9 % Sodium Chloride 50 ML 100.4 MG IV (11:22)
--- NOTE | 2024-11-26 11:29 | MHC.CLN ---
CONSULT PT IS SEVERELY MALNOURISHED PT WITH MODERATE DEPLETION OF SUBCUTANEOUS FAT AND SEVERELY DEPLETED MUSCLE MASS WITH BMI 14.5 AND CHRONIC POOR PO INTAKE IN PT WHO LIVES ALONE, REFUSES OUT SIDE SERVICES INTO HOME AND HAS NOT RECEIVED MEDICAL CARE IN >10 YEARS DIET RX: REGULAR-APPROPRIATE RECOMMEND ADDING MAGIC CUP BID TO PROVIDE 580KCALS, 18G PROTEIN RECOMMEND ADDING ENSURE BID TO PROVIDE 700KCALS, 40G PROTEIN TO PROMOTE WOUND HEALING PT WITH INCREASED NUTRITION RISK RT PRESSURE INJURIES MONITOR PO INTAKE AND ENCOURAGE SUPPLEMENTS PT IS AT RISK FOR [id number] MONITOR K+, MG AND PHOS SEE FULL CLINICAL NUTRITION ASSESSMENT
--- NOTE | 2024-11-26 12:13 | P.PNCC_ITS ---
Subjective Subjective Date of Service: 11/26/24 Interval History: 79-year-old lady with underlying Alzheimer's dementia, failure to thrive, development per now admitted on 11/24/2024 after mechanical fall and intravascular volume depletion. Patient with poor response to initial IV fluid resuscitation requiring initiation of pressor support and transferred to intensive care unit. Covered with empiric antibiotics with blood cultures pending. No events overnight. Continues to require pressor support. Critical Care Time (minutes): 45 Physical Exam 2 Vital Signs: Vital Signs: Last Vital Signs Temp 97.0 F 11/26/24 12:00 Pulse 84 11/26/24 12:00 Resp 12 11/26/24 12:00 BP 107/55 L 11/26/24 12:00 Pulse Ox 100 11/26/24 12:00 O2 Del Method Nasal Cannula 11/26/24 12:00 O2 Flow Rate 2.5 11/26/24 12:00 BMI result Body Mass Index 14.5 Const: General: no acute distress, alert and awake Nutritional Appearance: cachectic Eyes: Sclerae: sclerae normal EOM: EOMs intact bilaterally Neck: Neck: Yes no lymphadenopathy, Yes trachea midline and Yes supple Resp: Effort & Inspection: normal respiratory effort and no respiratory distress Auscultation: clear to auscultation bilaterally Cardio: Rate: regular rate Rhythm: regular rhythm Heart sounds: no gallops, no murmurs and no rubs GI: Palpation (GI): Soft to palpation and Other GI palpation findings present ( Nontender) Auscultation: normal bowel sounds Extrem: General: Yes no pedal edema, No clubbing and No cyanosis Objective Data Labs 11/26/24 05:26 11/26/24 05:26 Labs: Laboratory Results - last 24 hr 11/25/24 11/26/24 12:25 05:26 WBC 1.7 L 2.2 L RBC 2.05 L 2.76 L D Hgb 7.1 L 9.6 L D Hct 22.8 L 30.7 L D MCV 111.2 H 111.2 H MCH 34.6 H 34.8 H MCHC 31.1 31.3 RDW 15.9 15.6 Plt Count 70 L 102 L D MPV 10.9 10.5 Immature Gran % (Auto) 0.6 H 0.4 Neut % (Auto) 68.8 56.3 Lymph % (Auto) 16.2 L 25.4 [place] % (Auto) 13.8 H 16.1 H Eos % (Auto) 0.6 1.8 Baso % (Auto) 0.0 0.0 Lymph # (Auto) 0.3 L 0.6 L [place] # (Auto) 0.2 0.4 Eos # (Auto) 0.0 0.0 Baso # (Auto) 0.0 0.0 Abs Immat Gran (auto) 0.01 0.01 Absolute Neuts (auto) 1.2 L 1.3 L Absolute Nucleated RBC 0.000 0.000 Nucleated RBC % (auto) 0.0 0.0 Smear Tech's Comments VERIFIED VERIFIED PT 12.5 H INR 1.1 Sodium 143 144 Potassium 5.4 H 4.8 Chloride 110 H 111 H Carbon Dioxide 31 H 28 Anion Gap 7 L 10 L BUN 59 H 49 H Creatinine 2.24 H 2.05 H Estim Creat Clear Calc 13.4 14.7 Estimated GFR 21 23 Random Glucose 92 128 H Calcium 7.8 L 7.8 L Phosphorus 3.8 3.4 Magnesium 1.8 1.7 Total Bilirubin 0.4 AST 36 H ALT 28 Alkaline Phosphatase 51 Total Protein 4.3 L Albumin 3.3 L 3.0 L Microbiology Microbiology Results: Microbiology 11/24/24 18:14 Blood - Venous Blood Culture - Preliminary No growth after 24 hours. 11/24/24 18:14 Blood - Venous Blood Culture - Preliminary No growth after 24 hours. Progress Note: A&P Assessment and plan (1) Severe protein-calorie malnutrition: Status: Acute (2) CONNIE (acute kidney injury): Status: Acute (3) Intravascular volume depletion: Status: Acute (4) Acute dehydration: Status: Acute Plan Assessment: 79-year-old lady with underlying failure to swallow if and Alzheimer's dementia admitted with hypotension after mechanical fall also complicated by intravascular volume depletion. Plan: Neuro: No acute issues. Cardiac: Hypotension, appears to be related to intravascular volume depletion, continue to titrate off pressor support as tolerated. Pulmonary: No acute issues. Renal: CONNIE secondary to intravascular volume depletion, improving with IV fluids. Non oliguric. Continue to monitor renal indices and urine output. Endo: No acute issues. GI: Severe protein calorie malnutrition, continue with nutritional support. ID: No evidence of sepsis, continue with empiric antibiotics while blood cultures are finalized. Heme/Onc: No acute issues. Psych: No acute issues. Miscellaneous: No acute issues. Prophylaxis: Heparin Diet: Regular Critical care time spent: 45 minutes Quality Stroke Does the patient have a stroke diagnosis?: No VTE Prior VTE?: No VTE Risk Level:: Medical - moderate - high VTE Device Contraindication: Treatment Not Indicated VTE Drug Contraindication: N/A - Med Ordered
[2024-11-26] MEDS: Albumin Human 25 % 100 ML IV ×2 (13:05→18:00)
[2024-11-26] MEDS: Magnesium Sulfate/H2O 2 GM/50 ML PIGGYBACK IV (13:13)
[2024-11-26 14:39] LABS: Glucose, Whole Blood 157 mg/dL (60-115)
--- NOTE | 2024-11-26 15:26 | HO.WOUND ---
Wound Consult: Initial 79yr old female? admitted to [facility] [place] on 11/24/24 - See progress notes and H&P for detailed history.? Wound consult placed for Multiple skin issues.? Arrival to ICU unable to reposition patient at this time. She chart for details - patient is critically ill per Dr. Hernández admitted for underlying Alzheimer's dementia, failure to thrive development per now admitted on 11/24/2024 after mechanical fall and intravascular volume depletion. Patient with poor response to initial IV fluid resuscitation requiring initiation of pressor support and transferred to intensive care unit. Chart and photos reviewed. Buttock Etiology: ?Unknown Etiology Suspected Pressure injury Present on Admission vs friction / sheer injury Wound Bed: partial thickness pale pink wound bed with area of what appears to be yellow slough Drainage / Odor: watkins brown drainage on dressing Edges: ? irregular - ? friction / sheer component and moisture component Gogo wound: intact Goals of Treatment: ? Triad and Foam dressing and off load pressure Will assess in person for etiology - typically pressure points are not directly over the fleshy part of the gluteal mauricio jostin need to assess in person for etiology. Right Trochanter Etiology: ?Stage 1 ?Present on Admission Wound Bed: Intact red nonblanchable tissue Drainage / Odor: None Edges: ? irregular Gogo wound: Intact ? No Induration, Fluctuance or Warmth noted Goals of Treatment: ? Foam dressing is aid in pressure redistribution and Q2hr turns. Recommendations: 1. Turn and Reposition every 2 hours and as needed for patient comfort.? Use pillows or wedges to support off loading positions. 2. Off Load all bony prominences with use of pillows and heel boots if needed.? Apply Preventative foams where needed. ? 3. Monitor for incontinence and moisture control, use barrier creams when needed for prevention and treatment. 4. Provide adequate and supplemental nutrition.? 5. Continue low air loss mattress. 6. When applicable maintain blood glucose levels per Providers order. Right Trochanter - Off Load Pressure with Q2 hr turns and use of pillows - Routine cleansing.? Apply skin prep allow to dry.? Cover with foam dressing to aid in off loading and protection from friction. Change every 5 days and PRN. Buttocks - Off Load Pressure with Q2 hr turns and use of pillows - Cleanse with PH balance spray or wipes, pat dry. ?Apply thin layer of Triad to wound bed - only pat and dab no scrub and rub when soiling occurs. Reapply thin layer PRN after each episode of incontinence. Re-consult wound care Nurse for wound deterioration or wound changes.
--- NOTE | 2024-11-26 16:09 | MHC.CM.PN ---
Patient remains in ICU on pressure support. DP pending PT eval Likely a facility for STR or LTC via BLS.
[2024-11-26] MEDS: Norepinephrine Bitartrate/D5W 8 MG/250 ML PLAST..BAG 10.24 MG IVCONT (17:15)
[2024-11-26] MEDS: Furosemide 20 MG/2 ML VIAL IVPUSH (19:42)
[2024-11-27] VITALS (30 sets, daily range): BP systolic 84–121; BP diastolic 48–74; PULSE 83–103; RESP 11–21; TEMP 35.8–36.8; O2SAT 90–99; BMI 15.5
[2024-11-27] MEDS: Albumin Human 25 % 100 ML IV ×2 (00:41→06:20)
[2024-11-27] MEDS: Dextrose 5 % and Lactated Ring 1,000 ML 125 ML IVCONT ×2 (05:29→13:16)
[2024-11-27 06:15] LABS: Eosinophils Percent Auto 1.8 % (0-4); Hematocrit 25.8 % (37.0-47.0); Hemoglobin 8.2 g/dl (12.0-16.0); Imm Gran Abs Auto 0.01 X10*3/uL (0.00-0.03); Imm Gran Pct Auto 0.5 % (0.0-0.4); Lymphocytes Absolute Auto 0.4 X10*3/uL (1.2-4.9); Lymphocytes Percent Auto 17.5 % (20-40); MANUAL DIFF FLAG SCAN; Mean Corpuscular HGB Conc 31.8 g/dl (31.0-35.0); Mean Corpuscular Hemoglobin 35.2 pg (27.0-33.0); Mean Platelet Volume 10.2 fL (9.4-12.3); Monocytes Absolute Auto 0.5 X10*3/uL (0.1-1.2); Monocytes Percent Auto 20.7 % (2-11); Neutrophils Absolute Auto 1.3 x10*3/uL (2.0-8.3); Neutrophils Percent Auto 59.5 % (45-73); Red Blood Count 2.33 X10*6/uL (4.20-5.50); Red Cell Distribution Width 15.4 % (11.0-16.0); SCAN SMEAR FLAG 1
[2024-11-27 06:16] LABS: White Blood Count 2.2 X10*3/uL (4.8-10.8)
[2024-11-27 06:17] LABS: Mean Corpuscular Volume 110.7 fL (80.0-98.0); Platelet Count 60 X10*3/uL (160-400)
[2024-11-27] MEDS: cefTRIAXone sodium 1 GM VIAL IVPUSH (06:20)
[2024-11-27 06:42] LABS: Alanine Aminotransferase 18 U/L (0-31); Albumin Level 3.7 g/dL (3.5-5.0); Alkaline Phosphatase 46 U/L (39-117); Anion Gap 9 (12-20); Aspartate Amino Transferase 22 U/L (5-31); Bilirubin Total 0.4 mg/dL (0.0-1.0); Blood Urea Nitrogen 39 mg/dL (9-16); Carbon Dioxide 30 mmol/L (22-29); Chloride 109 mmol/L (96-108); Creatinine Clr Calc Pharmacy 17.9; Estimated Glomerular Filt Rate 27; Glucose Random 104 mg/dL (60-115); Potassium 4.3 mmol/L (3.3-5.1); Sodium 144 mmol/L (135-145); Total Protein 4.5 g/dL (6.5-8.0)
--- NOTE | 2024-11-27 06:44 | PC.NURSE ---
Assumed care of this patient at 19:00. Pt continues on levophed to maintain MAP >65 per goal/MAR in the evening.? Afebrile, temp low 96 degrees overnight despite initially applying warm blankets. Of note, this patient is very thin, cachectic-appearing. Covering INSPECTOR CLIP ON SUNGLASSES Jessica Serna made aware and a bairhugger was placed with temp improvement. This patient has a temperature-sensing IUC. ?? Pt placed back on oxymask in the evening for mouth breathing/to maintain spo2, weaned flow as tolerated. Pt denies sob and breathing remains even and unlabored without distress. INSPECTOR CLIP ON SUNGLASSES orders for 1x IVP lasix as well due to edema/volume status. Given with +effect, adequate UOP via IUC and improved peripheral edema. Albumin given as scheduled. ? Skin care provided. Additional foams placed to spine for protection of bony prominences. Pt assisted with q2h turning and repositioning, continues on low air loss bed. Bed alarm on and safety measures in place. Please see shift assessments, tasks in worklist, and MAR for full details. Handoff report given to oncoming RN at 06:45.
[2024-11-27 06:49] LABS: SLIDE REVIEW VERIFIED
[2024-11-27] MEDS: Cyanocobalamin (Vitamin B-12) 1,000 MCG TABLET 1000 MCG PO (08:22)
[2024-11-27] MEDS: Folic Acid 1 MG TABLET PO (08:22)
[2024-11-27] MEDS: Multivitamin TABLET 1 TAB PO (08:22)
[2024-11-27] MEDS: 0.9 % Sodium Chloride Flush 3 ML SYRINGE IVFLUSH ×3 (08:22→20:55)
--- NOTE | 2024-11-27 09:39 | P.PNCC_ITS ---
Subjective Subjective Date of Service: 11/27/24 Interval History: 79-year-old lady with underlying Alzheimer's dementia, failure to thrive, development per now admitted on 11/24/2024 after mechanical fall and intravascular volume depletion. Patient with poor response to initial IV fluid resuscitation requiring initiation of pressor support and transferred to intensive care unit. Covered with empiric antibiotics with blood cultures negative to date. No events overnight. Pressor requirements are improving. Critical Care Time (minutes): 45 Physical Exam 2 Vital Signs: Vital Signs: Last Vital Signs Temp 96.6 F L 11/27/24 09:00 Pulse 88 11/27/24 09:24 Resp 12 11/27/24 09:00 BP 88/48 L 11/27/24 09:24 Pulse Ox 94 11/27/24 09:00 O2 Del Method Oxymask 11/27/24 09:00 O2 Flow Rate 3 11/27/24 09:00 FiO2 25 11/27/24 03:00 BMI result Body Mass Index 15.5 Const: General: no acute distress, alert and awake Nutritional Appearance: malnourished Eyes: Sclerae: sclerae normal EOM: EOMs intact bilaterally Neck: Neck: Yes no lymphadenopathy, Yes trachea midline and Yes supple Resp: Effort & Inspection: normal respiratory effort and no respiratory distress Auscultation: clear to auscultation bilaterally Cardio: Rate: regular rate Rhythm: regular rhythm Heart sounds: no gallops, no murmurs and no rubs GI: Palpation (GI): Soft to palpation and Other GI palpation findings present ( Nontender) Auscultation: normal bowel sounds Extrem: General: Yes no pedal edema, No clubbing and No cyanosis Objective Data Labs 11/27/24 06:07 11/27/24 06:07 Labs: Laboratory Results - last 24 hr 11/26/24 11/27/24 14:36 06:07 WBC 2.2 L RBC 2.33 L Hgb 8.2 L Hct 25.8 L MCV 110.7 H MCH 35.2 H MCHC 31.8 RDW 15.4 Plt Count 60 L D MPV 10.2 Immature Gran % (Auto) 0.5 H Neut % (Auto) 59.5 Lymph % (Auto) 17.5 L [place] % (Auto) 20.7 H Eos % (Auto) 1.8 Baso % (Auto) 0.0 Lymph # (Auto) 0.4 L [place] # (Auto) 0.5 Eos # (Auto) 0.0 Baso # (Auto) 0.0 Abs Immat Gran (auto) 0.01 Absolute Neuts (auto) 1.3 L Absolute Nucleated RBC 0.000 Nucleated RBC % (auto) 0.0 Smear Tech's Comments VERIFIED Sodium 144 Potassium 4.3 Chloride 109 H Carbon Dioxide 30 H Anion Gap 9 L BUN 39 H Creatinine 1.80 H Estim Creat Clear Calc 17.9 Estimated GFR 27 POC Glucose 157 H Random Glucose 104 Calcium 8.0 L Phosphorus 3.0 Magnesium 2.0 Total Bilirubin 0.4 AST 22 ALT 18 Alkaline Phosphatase 46 Total Protein 4.5 L Albumin 3.7 Microbiology Microbiology Results: Microbiology 11/24/24 18:14 Blood - Venous Blood Culture - Preliminary No growth after 48 hours. 11/24/24 18:14 Blood - Venous Blood Culture - Preliminary No growth after 48 hours. Progress Note: A&P Assessment and plan (1) Hypotension: Status: Acute (2) Severe protein-calorie malnutrition: Status: Acute (3) CONNIE (acute kidney injury): Status: Acute (4) Intravascular volume depletion: Status: Acute Plan Assessment: 79-year-old lady with underlying failure to swallow if and Alzheimer's dementia admitted with hypotension after mechanical fall also complicated by intravascular volume depletion. Plan: Neuro: No acute issues. Cardiac: Hypotension, appears to be related to intravascular volume depletion, continue to titrate off pressor support as tolerated. Pulmonary: No acute issues. Renal: CONNIE secondary to intravascular volume depletion, improving with IV fluids. Non oliguric. Continue to monitor renal indices and urine output. Endo: No acute issues. GI: Severe protein calorie malnutrition, continue with nutritional support. ID: No evidence of sepsis, continue with empiric antibiotics while blood cultures are finalized. Heme/Onc: No acute issues. Psych: No acute issues. Miscellaneous: No acute issues. Prophylaxis: Heparin Diet: Regular Critical care time spent: 45 minutes Quality Stroke Does the patient have a stroke diagnosis?: No VTE Prior VTE?: No VTE Risk Level:: Medical - moderate - high VTE Device Contraindication: Treatment Not Indicated VTE Drug Contraindication: N/A - Med Ordered
[2024-11-27] MEDS: Norepinephrine Bitartrate/D5W 8 MG/250 ML PLAST..BAG 8.66 MG IVCONT (15:20)
[2024-11-27] MEDS: Dextrose 5 % and Lactated Ring 1,000 ML 100 ML IVCONT (20:39)
[2024-11-28] VITALS (29 sets, daily range): BP systolic 84–121; BP diastolic 49–92; PULSE 88–103; RESP 10–23; TEMP 35.7–37.1; O2SAT 90–100; BMI 16.7
[2024-11-28 05:31] LABS: VBG Base Excess 11.8 mmol/L; VBG HCO3 38 mmol/L (22-26); VBG pCO2 63 mmHg; VBG pH 7.39 (7.32-7.43); VBG pO2 84 mmHg
[2024-11-28] MEDS: Dextrose 5 % and Lactated Ring 1,000 ML 100 ML IVCONT ×2 (05:55→15:33)
[2024-11-28 05:59] LABS: Eosinophils Percent Auto 1.1 % (0-4); Hematocrit 28.3 % (37.0-47.0); Hemoglobin 8.7 g/dl (12.0-16.0); Imm Gran Abs Auto 0.02 X10*3/uL (0.00-0.03); Imm Gran Pct Auto 0.7 % (0.0-0.4); Lymphocytes Absolute Auto 0.4 X10*3/uL (1.2-4.9); Lymphocytes Percent Auto 13.1 % (20-40); MANUAL DIFF FLAG SCAN; Mean Corpuscular HGB Conc 30.7 g/dl (31.0-35.0); Mean Corpuscular Hemoglobin 34.8 pg (27.0-33.0); Mean Platelet Volume 10.6 fL (9.4-12.3); Monocytes Absolute Auto 0.6 X10*3/uL (0.1-1.2); Monocytes Percent Auto 20.1 % (2-11); Neutrophils Absolute Auto 1.8 x10*3/uL (2.0-8.3); Red Cell Distribution Width 15.2 % (11.0-16.0); SCAN SMEAR FLAG 1; White Blood Count 2.8 X10*3/uL (4.8-10.8)
[2024-11-28 06:00] LABS: Mean Corpuscular Volume 113.2 fL (80.0-98.0); Platelet Count 61 X10*3/uL (160-400); Venous Blood Gas Refer to POC result
[2024-11-28] MEDS: cefTRIAXone sodium 1 GM VIAL IVPUSH (06:10)
[2024-11-28 06:12] LABS: Alanine Aminotransferase 17 U/L (0-31); Albumin Level 3.2 g/dL (3.5-5.0); Alkaline Phosphatase 50 U/L (39-117); Anion Gap 8 (12-20); Aspartate Amino Transferase 20 U/L (5-31); Bilirubin Total 0.4 mg/dL (0.0-1.0); Blood Urea Nitrogen 35 mg/dL (9-16); Carbon Dioxide 31 mmol/L (22-29); Chloride 110 mmol/L (96-108); Creatinine Clr Calc Pharmacy 21.2; Estimated Glomerular Filt Rate 30; Glucose Random 101 mg/dL (60-115); Magnesium 1.7 mg/dL (1.6-2.6); Phosphorus 2.9 mg/dL (2.7-4.5); Potassium 4.1 mmol/L (3.3-5.1); Sodium 145 mmol/L (135-145); Total Protein 4.3 g/dL (6.5-8.0)
[2024-11-28 06:18] LABS: SLIDE REVIEW VERIFIED
--- NOTE | 2024-11-28 06:45 | PC.NURSE ---
Assumed care of this patient at 19:00. Pt remains pleasantly confused, A&Ox2. Reoriented often though pt is quickly forgetful. Pt continues on levophed to maintain MAP >65 per MAR. Pt continues on bairhugger overnight for hypothermia/ temp maintenance, w/ monitored via core temp-sensing metcalf. HARDWARE DESIGN ENGINEER made aware of temps. IUC care provided. Adequate UOP via metcalf. D5/LR re-ordered by covering HARDWARE DESIGN ENGINEER Jessica Serna at a reduced rate of 100ml/hr after the previous order . The pt continues on oxymask due to mouth breathing despite education attempts. Spo2 maintained >95%. Pt denies SOB. Breathing remains even and unlabored without distress. Skin care provided. Pt assisted with q2h turning and repositioning, continues on low air loss bed. Bed alarm on and safety measures in place. Please see shift assessments, tasks in the worklist, and MAR for full details. Handoff report given to oncoming RN at 06:45.?
[2024-11-28] MEDS: 0.9 % Sodium Chloride Flush 3 ML SYRINGE IVFLUSH ×3 (07:46→23:35)
[2024-11-28] MEDS: Multivitamin TABLET 1 TAB PO (08:19)
[2024-11-28] MEDS: Folic Acid 1 MG TABLET PO (08:19)
[2024-11-28] MEDS: Cyanocobalamin (Vitamin B-12) 1,000 MCG TABLET 1000 MCG PO (08:19)
--- NOTE | 2024-11-28 11:00 | PM.CCPN ---
Subjective Subjective Date of Service: 11/28/24 Interval History: 79-year-old lady with underlying Alzheimer's dementia, failure to thrive, development per now admitted on 11/24/2024 after mechanical fall and intravascular volume depletion. Patient with poor response to initial IV fluid resuscitation requiring initiation of pressor support and transferred to intensive care unit. Covered with empiric antibiotics with blood cultures negative to date. No events overnight. Continues to require pressor support. Critical Care Time (minutes): 45 Physical Exam Vital Signs: Vital Signs: Last Vital Signs Temp 98.1 F 11/28/24 10:00 Pulse 100 11/28/24 10:00 Resp 15 11/28/24 10:00 BP 110/67 11/28/24 10:00 Pulse Ox 97 11/28/24 10:00 O2 Del Method Oxymask 11/28/24 10:00 O2 Flow Rate 2 11/28/24 10:00 FiO2 25 11/27/24 03:00 BMI result Body Mass Index 16.7 Const: General: no acute distress, alert and awake Nutritional Appearance: cachectic Eyes: Sclerae: sclerae normal EOM: EOMs intact bilaterally Neck: Neck: Yes no lymphadenopathy, Yes trachea midline and Yes supple Resp: Effort & Inspection: normal respiratory effort and no respiratory distress Auscultation: clear to auscultation bilaterally Cardio: Rate: tachycardic Rhythm: regular rhythm Heart sounds: no gallops, no murmurs and no rubs GI: Palpation (GI): Soft to palpation and Other GI palpation findings present ( Nontender) Auscultation: normal bowel sounds Extrem: General: Yes no pedal edema, No clubbing and No cyanosis Objective Data Labs 11/28/24 05:22 11/28/24 05:22 Labs: Laboratory Results - last 24 hr 11/25/24 11/28/24 11/28/24 03:27 05:22 05:27 WBC 2.8 L RBC 2.50 L Hgb 8.7 L Hct 28.3 L MCV 113.2 H MCH 34.8 H MCHC 30.7 L RDW 15.2 Plt Count 61 L MPV 10.6 Immature Gran % (Auto) 0.7 H Neut % (Auto) 65.0 Lymph % (Auto) 13.1 L [place] % (Auto) 20.1 H Eos % (Auto) 1.1 Baso % (Auto) 0.0 Lymph # (Auto) 0.4 L [place] # (Auto) 0.6 Eos # (Auto) 0.0 Baso # (Auto) 0.0 Abs Immat Gran (auto) 0.02 Absolute Neuts (auto) 1.8 L Absolute Nucleated RBC 0.000 Nucleated RBC % (auto) 0.0 Smear Tech's Comments VERIFIED Smear Path Review SEE NOTE VBG pH 7.39 VBG pCO2 63 VBG pO2 84 VBG HCO3 38 H VBG O2 Saturation 100.0 VBG Base Excess 11.8 Sodium 145 Potassium 4.1 Chloride 110 H Carbon Dioxide 31 H Anion Gap 8 L BUN 35 H Creatinine 1.65 H Estim Creat Clear Calc 21.2 Estimated GFR 30 Random Glucose 101 Calcium 8.0 L Phosphorus 2.9 Magnesium 1.7 Total Bilirubin 0.4 AST 20 ALT 17 Alkaline Phosphatase 50 Total Protein 4.3 L Albumin 3.2 L Microbiology Microbiology Results: Microbiology 11/24/24 18:14 Blood - Venous Blood Culture - Preliminary No growth after 48 hours. 11/24/24 18:14 Blood - Venous Blood Culture - Preliminary No growth after 48 hours. Progress Note: A&P Assessment and plan (1) CONNIE (acute kidney injury): Status: Acute (2) Severe protein-calorie malnutrition: Status: Acute (3) Hypotension: Status: Acute (4) Intravascular volume depletion: Status: Acute Plan Assessment: 79-year-old lady with underlying failure to swallow if and Alzheimer's dementia admitted with hypotension after mechanical fall also complicated by intravascular volume depletion. Plan: Neuro: No acute issues. Cardiac: Hypotension, appears to be related to intravascular volume depletion, continue to titrate off pressor support as tolerated. Pulmonary: No acute issues. Renal: CONNIE secondary to intravascular volume depletion, improving with IV fluids. Non oliguric. Continue to monitor renal indices and urine output. Endo: No acute issues. GI: Severe protein calorie malnutrition, continue with nutritional support. ID: No evidence of sepsis, continue with empiric antibiotics while blood cultures are finalized. Heme/Onc: No acute issues. Psych: No acute issues. Miscellaneous: No acute issues. Prophylaxis: Heparin Diet: Regular Critical care time spent: 45 minutes Quality Stroke Does the patient have a stroke diagnosis?: No VTE Prior VTE?: No VTE Risk Level:: Medical - moderate - high VTE Device Contraindication: Treatment Not Indicated VTE Drug Contraindication: N/A - Med Ordered
[2024-11-28] MEDS: Albumin Human 25 % 100 ML IV ×3 (12:51→23:05)
[2024-11-28] MEDS: Norepinephrine Bitartrate/D5W 8 MG/250 ML PLAST..BAG 5.51 MG IVCONT (17:45)
[2024-11-29] VITALS (26 sets, daily range): BP systolic 87–116; BP diastolic 46–66; PULSE 74–95; RESP 10–19; TEMP 35.6–36.6; O2SAT 96–99; BMI 14.7
[2024-11-29] MEDS: Dextrose 5 % and Lactated Ring 1,000 ML 100 ML IVCONT (02:57)
[2024-11-29] MEDS: Albumin Human 25 % 100 ML IV (05:16)
[2024-11-29 05:54] LABS: VBG HCO3 37 mmol/L (22-26); VBG pCO2 54 mmHg; VBG pH 7.44 (7.32-7.43); VBG pO2 99 mmHg
[2024-11-29 05:57] LABS: MANUAL DIFF FLAG NO
[2024-11-29 06:00] LABS: Venous Blood Gas Refer to POC result
[2024-11-29 06:00] LABS: Eosinophils Percent Auto 1.4 % (0-4); Hematocrit 25.7 % (37.0-47.0); Hemoglobin 7.8 g/dl (12.0-16.0); Imm Gran Abs Auto 0.02 X10*3/uL (0.00-0.03); Imm Gran Pct Auto 0.7 % (0.0-0.4); Lymphocytes Absolute Auto 0.4 X10*3/uL (1.2-4.9); Lymphocytes Percent Auto 13.4 % (20-40); Mean Corpuscular HGB Conc 30.4 g/dl (31.0-35.0); Mean Corpuscular Hemoglobin 34.7 pg (27.0-33.0); Mean Corpuscular Volume 114.2 fL (80.0-98.0); Mean Platelet Volume 10.4 fL (9.4-12.3); Monocytes Absolute Auto 0.4 X10*3/uL (0.1-1.2); Monocytes Percent Auto 15.2 % (2-11); Neutrophils Absolute Auto 1.9 x10*3/uL (2.0-8.3); Neutrophils Percent Auto 69.3 % (45-73); Red Blood Count 2.25 X10*6/uL (4.20-5.50); Red Cell Distribution Width 15.1 % (11.0-16.0); White Blood Count 2.8 X10*3/uL (4.8-10.8)
[2024-11-29 06:01] LABS: Platelet Count 53 X10*3/uL (160-400)
[2024-11-29 06:16] LABS: Albumin Level 4.1 g/dL (3.5-5.0); Anion Gap 12 (12-20); Blood Urea Nitrogen 31 mg/dL (9-16); Calcium 8.3 mg/dL (8.4-10.2); Carbon Dioxide 31 mmol/L (22-29); Chloride 107 mmol/L (96-108); Creatinine Clr Calc Pharmacy 21.7; Estimated Glomerular Filt Rate 31; Glucose Random 88 mg/dL (60-115); Magnesium 1.6 mg/dL (1.6-2.6); Phosphorus 2.5 mg/dL (2.7-4.5); Potassium 3.9 mmol/L (3.3-5.1); Sodium 146 mmol/L (135-145)
[2024-11-29] MEDS: cefTRIAXone sodium 1 GM VIAL IVPUSH (06:26)
--- NOTE | 2024-11-29 07:00 | CA_ITS ---
Transthoracic Echocardiogram Patient (Last, First, Middle): Linda Collins, Gender: Female Date of : 1945 Age: 79 Procedure Date: 11/29/2024 Procedure Type: Transthoracic Echocardiogram Location: ICU Height: 170.18 cm Weight: 42.64 kg BSA: 1.47 m2 Heart Rate: 86 bpm BP: 91 / 53 mmHg Margin Analyst: SB Referring MD: Jean Hernández MD Early Years Teacher: Terry Miller MD Symptoms: Persistent hypotension Study Quality: Adequate ECG Rhythm: Sinus with extra beats Conclusions: - 1. Hyperdynamic LV EF of greater than 70% with impaired relaxation filling pattern 2. Moderate to severe tricuspid regurgitation 3. Severely elevated right ventricular systolic pressure 4. No gross pericardial effusion Findings Left Ventricle Normal left ventricular cavity size. There is normal left ventricular wall thickness. The left ventricular systolic function is hyperdynamic. The visually estimated ejection fraction is >70%. Spectral Doppler is indicative of an impaired relaxation filling pattern. E/E prime ratio is between 8 and 15 consistent with indeterminate filling pressures. Right Ventricle Moderately increased right ventricular cavity size. There is normal right ventricular systolic function. Atria The left atrium is mildly dilated. There is lipomatous hypertrophy of the interatrial septum. There is no evidence of interatrial shunt. The right atrium is moderately dilated. Aortic Valve Normal aortic valve structure and function. There is no aortic valve stenosis. There is no aortic valve regurgitation. Mitral Valve There is mild anterior and posterior mitral leaflet thickening. There is mild mitral annular calcification. There is trace mitral valve regurgitation. There is no mitral valve stenosis. Pulmonic Valve The pulmonic valve is likely normal. There is trace pulmonic valve regurgitation. Tricuspid Valve Normal tricuspid valve structure. There is moderate to severe tricuspid valve regurgitation. Normal right atrial pressure. Severe pulmonary hypertension is present. Great Vessels All visible segments of the aorta are normal in size. The pulmonary artery was not well visualized. Moderate plaque is seen in the sino tubular ridge. Venous The inferior vena cava is normal in size and collapses greater than 50% with inspiration. Pericardium/Pleural There is no evidence of pericardial effusion. There is a bilateral pleural effusion. Prior Study Comparison No prior study available for comparison. Measurements 2D Linear Measurements IVSd: 0.79 0.6-0.9/0.6-1.0 cm LVIDd: 3.44 3.9-5.3/4.2-5.9 cm LVIDd Index: 2.34 2.4-3.2/2.2-3.1 cm/m2 LVIDs: 2.03 2.0-3.6 cm LVPWd: 0.60 0.7-1.1 cm LA Diam: 3.00 2.7-3.8/3.0-4.0 cm LAIDs Index: 2.04 1.5-2.3 cm/m2 LV Mass: 75.29 67-162/88-224 g LV Mass Index: 51.22 43-95/49-115 g/m2 LVOT Diam: 1.90 3.0+(-)1.3 cm 2D Systolic Function EF 4C: 73.20 >55% Mitral Valve MV Pk E: 0.89 MV PK A: 0.91 MV Decel Time: 307.00 E/A: 1.00 E'Lateral: 8.70 E'Medial: 6.64 E/E' Med: 13.40 E/E' Lat: 10.20 PHT: 90.00 MVA PHT: 2.44 Decel Phillips: 2.89 Aortic Valve AoV Pk Sylvester: 1.47 AoV Mn Sylvester: 0.99 AoV VTI: 0.28 AoV Pk Grad: 9.00 Aov Mn Grad: 5.00 SALO Cont.VTI: 2.91 LVOT LVOT Pk Sylvester: 1.54 LVOT Mn Sylvester: 0.93 LVOT VTI: 0.29 LVOT Pk Grad: 9.00 LVOT Mn Grad: 4.00 LVOT Diam: 1.90 LVOT Area: 2.84 Diastolic Function MV Pk E: 0.89 MV Pk A: 0.91 E/A: 1.00 E'Medial: 6.64 E/E' Med: 13.40 E' Laterial: 8.70 E/E' Lat: 10.20 Right Ventricle TAPSE (mm): 23.90 TVS' Sylvester: 17.70 Tricuspid Valve TR Pk Sylvester: 3.96 TR Pk Grad: 63.00 RA Press: 3.00 RVSP: 66.00 Great Vessels Aorta Sinus of Valsalva: 3.20 2.0-3.5 cm Ao Asc: 3.50 2.1-3.4 cm Pulmonary Valve PV Pk Sylvester: 0.77 Peak PV Grad: 2.00 Updated in Other Vendor System with Status of Final Terry Miller MD electronically signed on 11/29/2024 12:01:21 PM with status of Final
[2024-11-29] MEDS: 0.9 % Sodium Chloride Flush 3 ML SYRINGE IVFLUSH ×3 (07:31→20:16)
[2024-11-29] MEDS: Potassium Phosphate/NS 15 MMOL/250 ML PLAST..BAG 62.5 MMOL IV (07:35)
[2024-11-29] MEDS: Cyanocobalamin (Vitamin B-12) 1,000 MCG TABLET 1000 MCG PO (08:07)
[2024-11-29] MEDS: Folic Acid 1 MG TABLET PO (08:07)
[2024-11-29] MEDS: Multivitamin TABLET 1 TAB PO (08:07)
[2024-11-29] MEDS: Midodrine HCl 5 MG TABLET PO ×3 (09:41→20:16)
--- NOTE | 2024-11-29 10:00 | P.PNCC_ITS ---
Subjective Subjective Date of Service: 11/29/24 Interval History: 79-year-old lady with underlying Alzheimer's dementia, failure to thrive, development per now admitted on 11/24/2024 after mechanical fall and intravascular volume depletion. Patient with poor response to initial IV fluid resuscitation requiring initiation of pressor support and transferred to intensive care unit. Covered with empiric antibiotics with blood cultures negative to date. No events overnight. Titrated off pressor support. Critical Care Time (minutes): 0 Physical Exam 2 Vital Signs: Vital Signs: Last Vital Signs Temp 96.3 F L 11/29/24 09:00 Pulse 79 11/29/24 09:11 Resp 12 11/29/24 09:00 BP 103/59 L 11/29/24 09:11 Pulse Ox 99 11/29/24 09:00 O2 Del Method Large Bore Nasal Cannula 11/29/24 09:00 O2 Flow Rate 4 11/29/24 09:00 FiO2 25 11/27/24 03:00 BMI result Body Mass Index 14.7 Const: General: no acute distress, alert and awake Eyes: Sclerae: sclerae normal EOM: EOMs intact bilaterally Neck: Neck: Yes no lymphadenopathy, Yes trachea midline and Yes supple Resp: Effort & Inspection: normal respiratory effort and no respiratory distress Auscultation: clear to auscultation bilaterally Cardio: Rate: regular rate Rhythm: regular rhythm Heart sounds: no gallops, no murmurs and no rubs GI: Palpation (GI): Soft to palpation and Other GI palpation findings present ( Nontender) Auscultation: normal bowel sounds Extrem: General: Yes no pedal edema, No clubbing and No cyanosis Objective Data Labs 11/29/24 05:49 11/29/24 05:49 Labs: Laboratory Results - last 24 hr 11/29/24 11/29/24 05:49 05:50 WBC 2.8 L RBC 2.25 L Hgb 7.8 L Hct 25.7 L MCV 114.2 H MCH 34.7 H MCHC 30.4 L RDW 15.1 Plt Count 53 L MPV 10.4 Immature Gran % (Auto) 0.7 H Neut % (Auto) 69.3 Lymph % (Auto) 13.4 L [place] % (Auto) 15.2 H Eos % (Auto) 1.4 Baso % (Auto) 0.0 Lymph # (Auto) 0.4 L [place] # (Auto) 0.4 Eos # (Auto) 0.0 Baso # (Auto) 0.0 Abs Immat Gran (auto) 0.02 Absolute Neuts (auto) 1.9 L Absolute Nucleated RBC 0.000 Nucleated RBC % (auto) 0.0 VBG pH 7.44 H VBG pCO2 54 VBG pO2 99 VBG HCO3 37 H VBG O2 Saturation 100.0 VBG Base Excess 12.0 Sodium 146 H Potassium 3.9 Chloride 107 Carbon Dioxide 31 H Anion Gap 12 BUN 31 H Creatinine 1.61 H Estim Creat Clear Calc 21.7 Estimated GFR 31 Random Glucose 88 Calcium 8.3 L Phosphorus 2.5 L Magnesium 1.6 Albumin 4.1 Microbiology Microbiology Results: Microbiology 11/24/24 18:14 Blood - Venous Blood Culture - Preliminary No growth after 48 hours. 11/24/24 18:14 Blood - Venous Blood Culture - Preliminary No growth after 48 hours. Progress Note: A&P Assessment and plan (1) Severe protein-calorie malnutrition: Status: Acute (2) CONNIE (acute kidney injury): Status: Acute (3) Acute dehydration: Status: Acute (4) Failure to thrive in adult: Status: Acute (5) Alzheimer's dementia: Status: Acute Plan Assessment: 79-year-old lady with underlying failure to swallow if and Alzheimer's dementia admitted with hypotension after mechanical fall also complicated by intravascular volume depletion. Plan: Neuro: No acute issues. Cardiac: Hypotension, appears to be related to intravascular volume depletion, titrated off pressor support. Pulmonary: No acute issues. Renal: CONNIE secondary to intravascular volume depletion, improved with IV fluids. Non oliguric. Continue to monitor renal indices and urine output. Endo: No acute issues. GI: Severe protein calorie malnutrition, continue with nutritional support. ID: No evidence of sepsis, continue with empiric antibiotics while blood cultures are finalized. Heme/Onc: No acute issues. Psych: No acute issues. Miscellaneous: No acute issues. Prophylaxis: Heparin Diet: Regular Quality Stroke Does the patient have a stroke diagnosis?: No VTE Prior VTE?: No VTE Risk Level:: Medical - moderate - high VTE Device Contraindication: Treatment Not Indicated VTE Drug Contraindication: N/A - Med Ordered
--- NOTE | 2024-11-29 10:32 | MHC.CLN ---
F/U PT IS SEVERELY MALNOURISHED SEE FULL CLINICAL NUTRITION ASSESSMENT DATED 11/26/24 DISCUSSED AT ROUNDS WITH PO INTAKE 25% PER NURSING DIET RX: REGULAR-APPROPRIATE RECEIVING MAGIC CUP BID TO PROVIDE 580KCALS, 18G PROTEIN RECEIVING ENSURE BID TO PROVIDE 700KCALS, 40G PROTEIN TO PROMOTE WOUND HEALING PT WITH INCREASED NUTRITION RISK RT PRESSURE INJURIES MONITOR PO INTAKE AND ENCOURAGE SUPPLEMENTS
--- NOTE | 2024-11-29 10:45 | P.CDIM_ITS ---
PROVIDER RESPONSE TEXT: To clarify, the appropriate diagnosis supported by the clinical indicators: Hypovolemic shock QUERY TEXT: >>> Provider Instructions - Do not remove this line >>> PHYSICIAN'S DOCUMENTATION REQUEST Date of Query: 11/29/2024 10:25 AM EDT Patient Name: Linda Collins Admit Date: 11/25/2024 Dear Jean Hernández MD, A review of the medical record indicates additional documentation may be needed. Please review below and update the documentation accordingly. Clinical Indicators: The following diagnoses or signs and symptoms were noted in the patient record: hypotension after mechanical fall complicated by intravascular volume depletion received pressor support with IV Levophed, IVF Based on the above, could you clarify the appropriate diagnosis, if significant, that supports the ab ove abnormalities and additional evaluation, monitoring, and/or treatment rendered: <<< Provider Instructions - Do not remove this line <<< Hypovolemic shock Labs indicate a diagnosis of (please specify) Other (explain) Clinically unable to determine (explain) >>> Contact Info - Do not remove this line>>> Thank you, Tracy Marc RN Use of terms such as suspected, likely, concern for, or probable (associated with a specific diagnosi s that is being evaluated, monitored, or treated as if it exists) are acceptable and can be coded in the inpatient se tting, when documented at the time of discharge. Please use your independent medical judgment in providing your response. THIS QUERY IS PART OF THE PERMANENT MEDICAL RECORD <<< Contact Info - Do not remove this line <<< >>> Disclaimer - Do no remove this line>>> Extension: [phone] <<< Disclaimer - Do not remove this line<<<
[2024-11-29 14:03] LABS: IgA 104 mg/dL (70-320); IgG 458 mg/dL (600-1540); IgM 19 mg/dL (50-300)
--- NOTE | 2024-11-29 14:24 | MHC.CM.PN ---
Pt remains in ICU on pressor support for BP: broad SNF referrals made as it seems unlikely pt will be able to return to home following d/c. No HCP on file. ? pt's capacity to name agent. PT eval pending. CM to follow
--- NOTE | 2024-11-29 15:13 | PC.NURSE ---
Assumed care @ 0700? Neuro: Alert & oriented to self only Respiratory: On 2L oxymask Cardiac: Sinus rhythm on tele,? norepinephrine paused per AUG. GI:LBM? 11/29, +bowel sounds, Poor po intake? :Castaneda removed, due to void today @ 1999 Skin: impair skin integrity, see skin assessment? Infectious: IV antibiotic? Lines:? peripheral IVs Plan: Transfer to [facility]. No longer requiring ICU-level care.
--- NOTE | 2024-11-29 15:55 | HO.WOUND ---
Wound Consult: Follow up 79yr old female? admitted to [facility] on 11/24/24 - See progress notes and H&P for detailed history.? Wound consult follow up for Left Buttock and Right Hip.? Patient appears malnourished and cachetic - nutrition following. Left Buttock Etiology: Unstageable Pressure injury Present on Admission Wound Bed: yellow slough adherent to wound bed pink moist tissue observed Drainage / Odor: scant drainage watkins yellow drainage Edges: ? irregular Gogo wound: intact hyperpigmentation Goals of Treatment: ?Triad and Foam dressing and off load pressure Prior note reflected unable to determine if pressure related due to not assessing in person - todays assessment reveals pressure related injury - this is directly over the patient bony prominence - she is very thin and significant muscle and tissue wasting noted. Right Trochanter Etiology: ?Resolving Stage 1 ?Present on Admission Wound Bed: Intact red nonblanchable tissue Drainage / Odor: None Edges: ? irregular Gogo wound: Intact ? No Induration, Fluctuance or Warmth noted Goals of Treatment: ? Foam dressing is aid in pressure redistribution and Q2hr turns. Of note the patient is noted to have various intact purpura noted throughout her body - Thrombocytopenia noted in lab values. No topical interventions needed at this time. No new topical recommendations needed at this time continue with current orders. Recommendations: 1. Turn and Reposition every 2 hours and as needed for patient comfort.? Use pillows or wedges to support off loading positions. 2. Off Load all bony prominences with use of pillows and heel boots if needed.? Apply Preventative foams where needed. ? 3. Monitor for incontinence and moisture control, use barrier creams when needed for prevention and treatment. 4. Provide adequate and supplemental nutrition.? 5. Continue low air loss mattress. 6. When applicable maintain blood glucose levels per Providers order. Right Trochanter - Off Load Pressure with Q2 hr turns and use of pillows - Routine cleansing.? Apply skin prep allow to dry.? Cover with foam dressing to aid in off loading and protection from friction. Change every 5 days and PRN. Buttocks - Off Load Pressure with Q2 hr turns and use of pillows - Cleanse with PH balance spray or wipes, pat dry. ?Apply thin layer of Triad to wound bed - only pat and dab no scrub and rub when soiling occurs. Reapply thin layer PRN after each episode of incontinence. Re-consult wound care Nurse for wound deterioration or wound changes.
[2024-11-30] VITALS (7 sets, daily range): BP systolic 85–111; BP diastolic 55–72; PULSE 69–92; RESP 16–18; TEMP 36.1–36.6; O2SAT 100; BMI 14.6
[2024-11-30 07:13] LABS: MANUAL DIFF FLAG NO
[2024-11-30 07:24] LABS: Basophils Percent Auto 0.3 % (0-2); Eosinophils Percent Auto 0.7 % (0-4); Hematocrit 30.1 % (37.0-47.0); Imm Gran Abs Auto 0.03 X10*3/uL (0.00-0.03); Lymphocytes Absolute Auto 0.4 X10*3/uL (1.2-4.9); Lymphocytes Percent Auto 13.3 % (20-40); Mean Corpuscular HGB Conc 29.9 g/dl (31.0-35.0); Mean Corpuscular Volume 117.1 fL (80.0-98.0); Mean Platelet Volume 10.9 fL (9.4-12.3); Monocytes Absolute Auto 0.3 X10*3/uL (0.1-1.2); Monocytes Percent Auto 10.3 % (2-11); Neutrophils Absolute Auto 2.2 x10*3/uL (2.0-8.3); Neutrophils Percent Auto 74.4 % (45-73); Red Blood Count 2.57 X10*6/uL (4.20-5.50); Red Cell Distribution Width 15.6 % (11.0-16.0)
[2024-11-30 07:25] LABS: Platelet Count 56 X10*3/uL (160-400)
[2024-11-30 07:39] LABS: Albumin Level 3.7 g/dL (3.5-5.0); Anion Gap 10 (12-20); Blood Urea Nitrogen 34 mg/dL (9-16); Calcium 8.3 mg/dL (8.4-10.2); Carbon Dioxide 33 mmol/L (22-29); Chloride 109 mmol/L (96-108); Creatinine Clr Calc Pharmacy 20.1; Estimated Glomerular Filt Rate 33; Glucose Random 78 mg/dL (60-115); Magnesium 1.7 mg/dL (1.6-2.6); Potassium 4.3 mmol/L (3.3-5.1); Sodium 148 mmol/L (135-145)
[2024-11-30] MEDS: Multivitamin TABLET 1 TAB PO (09:19)
[2024-11-30] MEDS: Folic Acid 1 MG TABLET PO (09:20)
[2024-11-30] MEDS: Cyanocobalamin (Vitamin B-12) 1,000 MCG TABLET 1000 MCG PO (09:20)
[2024-11-30] MEDS: cefTRIAXone sodium 1 GM VIAL IVPUSH (09:20)
[2024-11-30] MEDS: 0.9 % Sodium Chloride Flush 3 ML SYRINGE IVFLUSH ×3 (09:20→19:18)
[2024-11-30] MEDS: Midodrine HCl 5 MG TABLET PO ×3 (09:20→22:09)
[2024-11-30] MEDS: Dextrose 5 % 1,000 ML 100 ML IVCONT ×2 (09:34→19:21)
--- NOTE | 2024-11-30 09:52 | MHC.CM.PN ---
[facility] has discovered that Patient has [employer] Medicare; CM left a detailed message fo Daughter/Yvette, addressing the IMM.
--- NOTE | 2024-11-30 11:53 | HO.PM.IMPN ---
Subjective Subjective Date of Service: 11/30/24 Review of Systems Review of Systems: Yes Unobtainable due to mental condition Physical Exam Vital Signs: Vital Signs: Last Vital Signs Temp 97.8 F 11/30/24 11:19 Pulse 90 11/30/24 11:19 Resp 18 11/30/24 11:19 BP 85/58 L 11/30/24 11:19 Pulse Ox 100 11/30/24 11:19 O2 Del Method Oxymask 11/30/24 11:19 O2 Flow Rate 4 11/30/24 11:19 FiO2 25 11/27/24 03:00 BMI result Body Mass Index 14.6 Alert, oriented to self, very confused, frail and ill-appearing, 5 cm mass on left chest wall immobile, abdomen soft nontender Objective Data Active Medications Acetaminophen (Acetaminophen 325 Mg Tablet) 650 mg PO Q6H PRN PRN Reason: Pain, Mild 1-3,fever,headache Calcium Carbonate (Calcium Carbonate 750 Mg Tab.Chew) 750 mg PO Q4H PRN PRN Reason: Heartburn Ceftriaxone Sodium (Ceftriaxone Sodium 1 Gm Vial) 1 gm IVPUSH Q24H [facility] Last Admin: 11/30/24 09:20 Dose: 1 gm Documented By: BROOK Cyanocobalamin (Cyanocobalamin (Vitamin B-12) 1,000 Mcg Tablet) 1,000 mcg PO DAILY [facility] Last Admin: 11/30/24 09:20 Dose: 1,000 mcg Documented By: BROOK Folic Acid (Folic Acid 1 Mg Tablet) 1 mg PO DAILY [facility] Last Admin: 11/30/24 09:20 Dose: 1 mg Documented By: BROOK Dextrose (D5w) 1,000 mls @ 100 mls/hr IVCONT .Q10H [facility] Last Admin: 11/30/24 09:34 Dose: 100 mls/hr Documented By: BROOK Magnesium Hydroxide (Milk Of Magnesia 30 Ml Oral.Susp) 30 ml PO DAILY PRN PRN Reason: Constipation Melatonin (Melatonin 3 Mg Tablet) 6 mg PO BEDTIME PRN PRN Reason: Insomnia Midodrine (Midodrine Hcl 5 Mg Tablet) 5 mg PO TID [facility] Last Admin: 11/30/24 09:20 Dose: 5 mg Documented By: BROOK Multivitamins/Vitamin C (Multivitamin Tablet) 1 tab PO DAILY [facility] Last Admin: 11/30/24 09:19 Dose: 1 tab Documented By: BROOK Sodium Chloride (0.9 % Sodium Chloride Flush 3 Ml Syringe) 3 ml IVFLUSH QSHIFT [facility] Last Admin: 11/30/24 09:20 Dose: 3 ml Documented By: BROOK Labs 11/30/24 06:17 11/30/24 06:17 Labs: Laboratory Results - last 24 hr 11/25/24 11/30/24 09:36 06:17 MCV 117.1 H MCH 35.0 H MCHC 29.9 L RDW 15.6 Plt Count 56 L MPV 10.9 Immature Gran % (Auto) 1.0 H Neut % (Auto) 74.4 H Lymph % (Auto) 13.3 L [place] % (Auto) 10.3 Eos % (Auto) 0.7 Baso % (Auto) 0.3 Lymph # (Auto) 0.4 L [place] # (Auto) 0.3 Eos # (Auto) 0.0 Baso # (Auto) 0.0 Abs Immat Gran (auto) 0.03 Absolute Neuts (auto) 2.2 Absolute Nucleated RBC 0.000 Nucleated RBC % (auto) 0.0 Anion Gap 10 L Estim Creat Clear Calc 20.1 Estimated GFR 33 Random Glucose 78 Calcium 8.3 L Phosphorus 4.0 Magnesium 1.7 Albumin 3.7 IgG Total 458 L IgA Total 104 IgM 19 L LENA Interpretation Microbiology Microbiology Results: Microbiology 11/24/24 18:14 Blood Culture - Final Blood - Venous No growth after 5 days. 11/24/24 18:14 Blood Culture - Final Blood - Venous No growth after 5 days. Assessment and Plan (1) CONNIE (acute kidney injury): Status: Acute Plan 79F does not follow with doctors, lives home alone, brought in after fall. daughter notes progressive dementia, paranoid behaviour, weight loss, loss of appetite, found to be FTT, lab abnormalities, transferred to ICU on 11/25/24 for hypotension requiring pressors, now weaned off and downgraded 11/29/24 failure to thrive due to alzheimers dementia complicated by severe protein calorie malnutrition, hypovolemic shock Further complicated by acute kidney injury, hyperkalemia, hypernatremia, B12 and folate deficiency with pancytopenia, hypoglycemia, hypotension now off pressors, hyperkalemia resolved, creatinine now plateaued around 1.6 conitnue midodrine, d5w, B12 and folate supplement, multivitamin, does not appear to have infectious source will dc empiric ceftriaxone Monitor labs Left chest wall/breast mass Patient reports being there for years but is unreliable No obvious metastatic sites on CT chest or abdomen DVT prophylaxis-mechanical due to cytopenias Full code reason for continued hospitalization: hypernatremia Quality Stroke Does the patient have a stroke diagnosis?: No VTE Prior VTE?: No VTE Risk Level:: Medical - moderate - high VTE Device Contraindication: Treatment Not Indicated VTE Drug Contraindication: N/A - Med Ordered
[2024-12-01 03:50] VITALS: BP 94/65; PULSE 65; RESP 16; TEMP 36.6; O2SAT 100
[2024-12-01] MEDS: Dextrose 5 % 1,000 ML 100 ML IVCONT ×2 (05:21→15:24)
[2024-12-01 05:57] VITALS: BMI 18.7
[2024-12-01 07:05] VITALS: BP 98/58; PULSE 75; RESP 16; TEMP 36.4; O2SAT 100
[2024-12-01] MEDS: Midodrine HCl 5 MG TABLET PO ×2 (07:49→20:25)
[2024-12-01] MEDS: Folic Acid 1 MG TABLET PO (07:50)
[2024-12-01] MEDS: Multivitamin TABLET 1 TAB PO (07:50)
[2024-12-01] MEDS: Cyanocobalamin (Vitamin B-12) 1,000 MCG TABLET 1000 MCG PO (07:50)
--- NOTE | 2024-12-01 09:17 | P.PNIM_ITS ---
Subjective Subjective Date of Service: 12/01/24 Review of Systems Review of Systems: Yes Unobtainable due to mental condition Physical Exam 2 Vital Signs: Vital Signs: Last Vital Signs Temp 97.6 F 12/01/24 07:05 Pulse 75 12/01/24 07:05 Resp 16 12/01/24 07:05 BP 98/58 L 12/01/24 07:05 Pulse Ox 100 12/01/24 07:05 O2 Del Method Oxymask 12/01/24 07:05 O2 Flow Rate 3 12/01/24 07:05 FiO2 25 11/27/24 03:00 BMI result Body Mass Index 18.7 Alert, oriented to self, very confused, frail and ill-appearing, 5 cm mass on left chest wall immobile, abdomen soft nontender Objective Data Active Medications Acetaminophen (Acetaminophen 325 Mg Tablet) 650 mg PO Q6H PRN PRN Reason: Pain, Mild 1-3,fever,headache Calcium Carbonate (Calcium Carbonate 750 Mg Tab.Chew) 750 mg PO Q4H PRN PRN Reason: Heartburn Cyanocobalamin (Cyanocobalamin (Vitamin B-12) 1,000 Mcg Tablet) 1,000 mcg PO DAILY [facility] Last Admin: 12/01/24 07:50 Dose: 1,000 mcg Documented By: TIFFANY Folic Acid (Folic Acid 1 Mg Tablet) 1 mg PO DAILY [facility] Last Admin: 12/01/24 07:50 Dose: 1 mg Documented By: TIFFANY Dextrose (D5w) 1,000 mls @ 100 mls/hr IVCONT .Q10H [facility] Last Admin: 12/01/24 05:21 Dose: 100 mls/hr Documented By: CAMPBELL Magnesium Hydroxide (Milk Of Magnesia 30 Ml Oral.Susp) 30 ml PO DAILY PRN PRN Reason: Constipation Melatonin (Melatonin 3 Mg Tablet) 6 mg PO BEDTIME PRN PRN Reason: Insomnia Midodrine (Midodrine Hcl 5 Mg Tablet) 5 mg PO TID [facility] Last Admin: 12/01/24 07:49 Dose: 5 mg Documented By: TIFFANY Multivitamins/Vitamin C (Multivitamin Tablet) 1 tab PO DAILY [facility] Last Admin: 12/01/24 07:50 Dose: 1 tab Documented By: TIFFANY Sodium Chloride (0.9 % Sodium Chloride Flush 3 Ml Syringe) 3 ml IVFLUSH QSHIFT [facility] Last Admin: 12/01/24 07:50 Dose: Not Given Documented By: TIFFANY Non-Admin Reason: IV Running Labs 11/30/24 06:17 11/30/24 06:17 Assessment and Plan (1) CONNIE (acute kidney injury): Status: Acute Plan 79F does not follow with doctors, lives home alone, brought in after fall. daughter notes progressive dementia, paranoid behaviour, weight loss, loss of appetite, found to be FTT, lab abnormalities, transferred to ICU on 11/25/24 for hypotension requiring pressors, now weaned off and downgraded 11/29/24 failure to thrive due to alzheimers dementia complicated by severe protein calorie malnutrition, hypovolemic shock Further complicated by acute kidney injury, hyperkalemia, hypernatremia, B12 and folate deficiency with pancytopenia, hypoglycemia, hypotension now off pressors, hyperkalemia resolved, creatinine now plateaued around 1.6 continue midodrine, d5w, B12 and folate supplement, multivitamin, does not appear to have infectious source will dc empiric ceftriaxone Monitor labs Left chest wall/breast mass Patient reports being there for years but is unreliable No obvious metastatic sites on CT chest or abdomen outpatient work up DVT prophylaxis-mechanical due to cytopenias Full code reason for continued hospitalization: hypernatremia Quality Stroke Does the patient have a stroke diagnosis?: No VTE Prior VTE?: No VTE Risk Level:: Medical - moderate - high VTE Device Contraindication: Treatment Not Indicated VTE Drug Contraindication: N/A - Med Ordered
--- NOTE | 2024-12-01 10:25 | MHC.CM.PN ---
Per MD in [facility]OUN[facility], Patient does not have a HCP and appears unable to name a HCP at this time and therefor will need Guardianship. CM Director is aware.
[2024-12-01 10:41] LABS: Anion Gap 7 (12-20); Blood Urea Nitrogen 35 mg/dL (9-16); Carbon Dioxide 32 mmol/L (22-29); Chloride 104 mmol/L (96-108); Estimated Glomerular Filt Rate 33; Glucose Random 98 mg/dL (60-115); Potassium 4.5 mmol/L (3.3-5.1); Sodium 138 mmol/L (135-145)
[2024-12-01 10:45] LABS: Hematocrit 32.9 % (37.0-47.0); Hemoglobin 9.9 g/dl (12.0-16.0); Mean Corpuscular HGB Conc 30.1 g/dl (31.0-35.0); Mean Corpuscular Hemoglobin 34.5 pg (27.0-33.0); Mean Platelet Volume 11.1 fL (9.4-12.3); Red Blood Count 2.87 X10*6/uL (4.20-5.50); Red Cell Distribution Width 14.9 % (11.0-16.0); White Blood Count 3.3 X10*3/uL (4.8-10.8)
[2024-12-01 10:46] LABS: Mean Corpuscular Volume 114.6 fL (80.0-98.0); Platelet Count 76 X10*3/uL (160-400)
[2024-12-01 11:04] VITALS: BP 103/59; PULSE 72; RESP 16; TEMP 36.4; O2SAT 98
--- NOTE | 2024-12-01 12:01 | MHC.CLN ---
F/U PT IS SEVERELY MALNOURISHED WITH PRESSURE INJURIES PO INTAKE 25% DIET RX: REGULAR-APPROPRIATE RECEIVING MAGIC CUP BID TO PROVIDE 580KCALS, 18G PROTEIN RECEIVING ENSURE BID TO PROVIDE 700KCALS, 40G PROTEIN TO PROMOTE WOUND HEALING CONTINUE TO MONITOR PO INTAKE AND ENCOURAGE SUPPLEMENTS
--- NOTE | 2024-12-01 14:15 | PM.EVENT ---
Event Note Date of Service: 12/01/24 Event Note: LUE swelling, no IVs, will check doppler Time Spent With Patient Time: Total time managing care of this patient today ____ minutes.
[2024-12-01 15:19] VITALS: BP 137/81; PULSE 84; RESP 16; TEMP 35.7; O2SAT 100
[2024-12-01 15:35] VITALS: BP 137/85
--- NOTE | 2024-12-01 18:44 | PC.NURSE ---
swelling to l hand increased, noted by AERONAUTICAL DRAFTER approx 1530. charge nurse removed rings from fingers, md notified. Us of extremity ordered results (-) for dvt
[2024-12-01 19:51] VITALS: BP 111/65; PULSE 78; RESP 17; TEMP 36.6; O2SAT 99
[2024-12-01] MEDS: Melatonin 3 MG TABLET 6 MG PO (20:25)
[2024-12-02] VITALS (9 sets, daily range): BP systolic 112–125; BP diastolic 58–78; PULSE 72–96; RESP 16–20; TEMP 33.9–37; O2SAT 92–100; BMI 18.9
[2024-12-02] MEDS: Dextrose 5 % 1,000 ML 100 ML IVCONT (03:05)
[2024-12-02 06:41] LABS: Venous Blood Gas Refer to POC result
[2024-12-02 06:45] LABS: VBG Base Excess 6.6 mmol/L; VBG HCO3 35 mmol/L (22-26); VBG pCO2 80 mmHg; VBG pH 7.25 (7.32-7.43); VBG pO2 88 mmHg
[2024-12-02 07:04] LABS: Alanine Aminotransferase 15 U/L (0-31); Albumin Level 3.1 g/dL (3.5-5.0); Alkaline Phosphatase 60 U/L (39-117); Anion Gap 9 (12-20); Aspartate Amino Transferase 21 U/L (5-31); Bilirubin Direct 0.1 mg/dL (0.0-0.5); Bilirubin Total 0.3 mg/dL (0.0-1.0); Blood Urea Nitrogen 32 mg/dL (9-16); Carbon Dioxide 31 mmol/L (22-29); Chloride 98 mmol/L (96-108); Creatinine Clr Calc Pharmacy 28.2; Estimated Glomerular Filt Rate 37; Glucose Random 109 mg/dL (60-115); Potassium 4.1 mmol/L (3.3-5.1); Sodium 134 mmol/L (135-145); Total Protein 4.1 g/dL (6.5-8.0)
[2024-12-02 07:08] LABS: Hematocrit 29.7 % (37.0-47.0); Hemoglobin 9.2 g/dl (12.0-16.0); Mean Corpuscular Hemoglobin 34.5 pg (27.0-33.0); Mean Platelet Volume 11.6 fL (9.4-12.3); NRBC Pct Auto 0.6 /100WBC (0.0-0.2); Red Blood Count 2.67 X10*6/uL (4.20-5.50); Red Cell Distribution Width 14.3 % (11.0-16.0); White Blood Count 3.3 X10*3/uL (4.8-10.8)
[2024-12-02 07:10] LABS: Mean Corpuscular Volume 111.2 fL (80.0-98.0); Platelet Count 73 X10*3/uL (160-400)
[2024-12-02] MEDS: Cyanocobalamin (Vitamin B-12) 1,000 MCG TABLET 1000 MCG PO (08:52)
[2024-12-02] MEDS: Multivitamin TABLET 1 TAB PO (08:52)
[2024-12-02] MEDS: Folic Acid 1 MG TABLET PO (08:52)
[2024-12-02] MEDS: Midodrine HCl 5 MG TABLET PO (08:52)
--- NOTE | 2024-12-02 10:17 | P.PNIM_ITS ---
Subjective Subjective Date of Service: 12/02/24 Review of Systems Review of Systems: Yes Unobtainable due to mental status Physical Exam 2 Vital Signs: Vital Signs: Last Vital Signs Temp 97.8 F 12/02/24 06:47 Pulse 72 12/02/24 06:47 Resp 18 12/02/24 06:47 BP 122/60 12/02/24 06:47 Pulse Ox 100 12/02/24 06:47 O2 Del Method Oxymask 12/02/24 06:47 O2 Flow Rate 4 12/02/24 06:47 FiO2 25 11/27/24 03:00 BMI result Body Mass Index 18.9 Alert, oriented to self, very confused, frail and ill-appearing, cachexic, 5 cm mass on left chest wall immobile, abdomen soft nontender Objective Data Active Medications Acetaminophen (Acetaminophen 325 Mg Tablet) 650 mg PO Q6H PRN PRN Reason: Pain, Mild 1-3,fever,headache Calcium Carbonate (Calcium Carbonate 750 Mg Tab.Chew) 750 mg PO Q4H PRN PRN Reason: Heartburn Cyanocobalamin (Cyanocobalamin (Vitamin B-12) 1,000 Mcg Tablet) 1,000 mcg PO DAILY [facility] Last Admin: 12/02/24 08:52 Dose: 1,000 mcg Documented By: SAMANTHA Folic Acid (Folic Acid 1 Mg Tablet) 1 mg PO DAILY [facility] Last Admin: 12/02/24 08:52 Dose: 1 mg Documented By: SAMANTHA Magnesium Hydroxide (Milk Of Magnesia 30 Ml Oral.Susp) 30 ml PO DAILY PRN PRN Reason: Constipation Melatonin (Melatonin 3 Mg Tablet) 6 mg PO BEDTIME PRN PRN Reason: Insomnia Last Admin: 12/01/24 20:25 Dose: 6 mg Documented By: LAURENT Midodrine (Midodrine Hcl 5 Mg Tablet) 5 mg PO TID [facility] Last Admin: 12/02/24 08:52 Dose: 5 mg Documented By: SAMANTHA Multivitamins/Vitamin C (Multivitamin Tablet) 1 tab PO DAILY [facility] Last Admin: 12/02/24 08:52 Dose: 1 tab Documented By: SAMANTHA Sodium Chloride (0.9 % Sodium Chloride Flush 3 Ml Syringe) 3 ml IVFLUSH QSHIFT [facility] Last Admin: 12/02/24 09:54 Dose: Not Given Documented By: SAMANTHA Non-Admin Reason: IV Running Labs 12/02/24 06:32 12/02/24 06:32 Labs: Laboratory Results - last 24 hr 12/01/24 12/02/24 12/02/24 10:11 06:32 06:40 MCV 114.6 H 111.2 H MCH 34.5 H 34.5 H MCHC 30.1 L 31.0 RDW 14.9 14.3 Plt Count 76 L D 73 L MPV 11.1 11.6 Absolute Nucleated RBC 0.000 0.020 H Nucleated RBC % (auto) 0.0 0.6 H VBG pH 7.25 L VBG pCO2 80 VBG pO2 88 VBG HCO3 35 H VBG O2 Saturation 99.0 VBG Base Excess 6.6 Anion Gap 7 L 9 L Estim Creat Clear Calc 26.0 28.2 Estimated GFR 33 37 Random Glucose 98 109 Calcium 8.0 L 8.0 L Total Bilirubin 0.3 Direct Bilirubin 0.1 AST 21 ALT 15 Alkaline Phosphatase 60 Total Protein 4.1 L Albumin 3.1 L Assessment and Plan (1) CONNIE (acute kidney injury): Status: Acute Plan 79F does not follow with doctors, lives home alone, brought in after fall. daughter notes progressive dementia, paranoid behaviour, weight loss, loss of appetite, found to be FTT, lab abnormalities, transferred to ICU on 11/25/24 for hypotension requiring pressors, now weaned off and downgraded 11/29/24 failure to thrive due to alzheimers dementia complicated by severe protein calorie malnutrition, hypovolemic shock Further complicated by acute kidney injury, hyperkalemia, hypernatremia, B12 and folate deficiency with pancytopenia, hypoglycemia, hypotension now off pressors, hyperkalemia, hypernatremia, hypotension resolved, creatinine now plateaued around 1.3 - 1.6 continue midodrine prn, B12 and folate supplement, multivitamin, does not appear to have infectious source now off empiric ceftriaxone Monitor labs acute hypoxic and hypercapneic respiratory failure hypercapnea due to oxygen toxicity, avoid excess oxygen supplementation, goal sao2 90% repeat vbg later today no need for nippv as mental status better than previous days Left chest wall/breast mass Patient reports being there for years but is unreliable No obvious metastatic sites on CT chest or abdomen outpatient work up DVT prophylaxis-mechanical due to cytopenias Full code social - patient lacks capacity to make most medical decisions, likely permanent due to Alzheimer dementia, does not have health care proxy, currently lacking capacity to appoint one, but this may not be permanent, at times able to identify family members. would pursue guardianship for now, but if mental status continues to improve may be able to appoint health care proxy, patient's daughter Yvette would be willing. reason for continued hospitalization: inadequate intake Quality Stroke Does the patient have a stroke diagnosis?: No VTE Prior VTE?: No VTE Risk Level:: Medical - moderate - high VTE Device Contraindication: Treatment Not Indicated VTE Drug Contraindication: N/A - Med Ordered
--- NOTE | 2024-12-02 12:49 | MHC.CM.PN ---
BHANU returned a call to Paul at [facility] @ [phone], Ext. [phone], but was only able to leave a detailed message, updating the dc plan/goals.
[2024-12-02 13:59] LABS: Venous Blood Gas Refer to POC result
[2024-12-02 14:04] LABS: VBG Base Excess 5.4 mmol/L; VBG HCO3 32 mmol/L (22-26); VBG pCO2 61 mmHg; VBG pH 7.33 (7.32-7.43); VBG pO2 114 mmHg
--- NOTE | 2024-12-02 16:24 | MHC.SL.SWA ---
Speech Pathologist Impression: Risk of Aspiration Due to: Confusion, behavioral resistance Dysphasia Diet Status: Puree/thin Liquid Consistency and Strategies for Safe Swallow: Liquid Intake Recommendation: Thin Liquid Intake Strategies: Solid Food Consistency: Dietary Recommendations: Pureed (NDD1) Additional Modifications to Solid Foods: Oral Medication Intake: Crushed with Puree Please contact the pharmacy regarding appropriate crushable or liquid drug formulations that are available whenever modified delivery is recommended. Compensatory Strategies and Precautions to be Taken for Safe Swallow: Supervision While Eating and Drinking for Safe Swallow: Total Assistance (1:1) Foods to Avoid: Hard difficult to chew solids, mixed consistencies Swallowing Recommended Treatments: Recommendation for Speech: Inpatient Speech Therapy Comment: Patient present with mild oral phase dysphagia however has high level of confusion and is difficult to feed secondary to behavioral resistance, creating risk of aspiration. Recommend downgrade diet to single consistency, pureed (NDD1), continue on thin liquids, pills crushed in puree. Patient requires 1-1 feeding, however would benefit from some hand over hand cuing to encourage self administration and independence (which may decrease behavioral resistance). Behaviors continue to patient at risk for FTT, responses to feeding should be closely monitored. DENTAL ASSISTANT MEDICAL ASSISTANT notified MD, RD and RN of recommendations by secure text, will continue to follow M-F as inpatient, assess toleration and behavior, and re-assess for advancement of diet as warranted. Frequency/Duration: Date Range for Service Req: Timeline to reassess: Meat Cutting Teacher Clinican/Clinical Fellow: No Supervisory Statement: I have reviewed and agree with the student/clinical fellow's documentation: N/A Speech Language Pathologist: Trinity Burrows M.A., [facility]-DENTAL ASSISTANT MEDICAL ASSISTANT
[2024-12-02] MEDS: 0.9 % Sodium Chloride Flush 3 ML SYRINGE IVFLUSH (18:37)
[2024-12-03] VITALS (7 sets, daily range): BP systolic 123–132; BP diastolic 60–62; PULSE 90–96; RESP 13–25; TEMP 36.5–36.6; O2SAT 91–94; BMI 17.3
[2024-12-03] MEDS: 0.9 % Sodium Chloride Flush 3 ML SYRINGE IVFLUSH ×3 (00:06→16:30)
[2024-12-03 07:03] LABS: Hemoglobin 9.5 g/dl (12.0-16.0); Mean Corpuscular HGB Conc 31.7 g/dl (31.0-35.0); Mean Corpuscular Hemoglobin 34.4 pg (27.0-33.0); Mean Corpuscular Volume 108.7 fL (80.0-98.0); Mean Platelet Volume 11.5 fL (9.4-12.3); Red Blood Count 2.76 X10*6/uL (4.20-5.50); White Blood Count 4.9 X10*3/uL (4.8-10.8)
[2024-12-03 07:05] LABS: Platelet Count 94 X10*3/uL (160-400)
[2024-12-03 07:07] LABS: Anion Gap 10 (12-20); Blood Urea Nitrogen 32 mg/dL (9-16); Calcium 8.4 mg/dL (8.4-10.2); Carbon Dioxide 31 mmol/L (22-29); Chloride 96 mmol/L (96-108); Creatinine Clr Calc Pharmacy 26.4; Estimated Glomerular Filt Rate 34; Glucose Random 78 mg/dL (60-115); Magnesium 1.5 mg/dL (1.6-2.6); Potassium 4.5 mmol/L (3.3-5.1); Sodium 132 mmol/L (135-145)
--- NOTE | 2024-12-03 10:03 | MHC.SLORD ---
Speech Language Pathology Order Status: Per MD, patient is NPO after aspirating, not appropriate for bedside swallow eval, as patient is not stable at this time, on high flow/NRB.
--- NOTE | 2024-12-03 10:14 | MHC.CM.PN ---
Per [facility]OUNDS discussion, Patient is not yet medically cleared for dc (inadequate intake). Patient may benefit from a PT Eval at some point for STR into likely LTC VS LTC. Patient will need Guardianship and LTC Medicaid(Financial is involved). CM will continue to follow.
--- NOTE | 2024-12-03 10:26 | P.PNIM_ITS ---
Subjective Subjective Date of Service: 12/03/24 Interval History: significant hypoxic episode this morning, placed on highflow and NRB, saturating low 90s Review of Systems Review of Systems: Yes Unobtainable due to mental condition Physical Exam 2 Vital Signs: Vital Signs: Last Vital Signs Temp 97.7 F 12/03/24 07:29 Pulse 91 12/03/24 07:29 Resp 25 H 12/03/24 10:17 BP 132/60 12/03/24 07:29 Pulse Ox 91 L 12/03/24 07:29 O2 Del Method Oxymask 12/03/24 07:29 O2 Flow Rate 2 12/03/24 07:29 FiO2 25 11/27/24 03:00 BMI result Body Mass Index 17.3 Alert, oriented to self, very confused, frail and ill-appearing, cachexic, 5 cm mass on left chest wall immobile, abdomen soft nontender Bilateral crackles, accessory muscles used Objective Data Active Medications Acetaminophen (Acetaminophen 325 Mg Tablet) 650 mg PO Q6H PRN PRN Reason: Pain, Mild 1-3,fever,headache Calcium Carbonate (Calcium Carbonate 750 Mg Tab.Chew) 750 mg PO Q4H PRN PRN Reason: Heartburn Cyanocobalamin (Cyanocobalamin (Vitamin B-12) 1,000 Mcg Tablet) 1,000 mcg PO DAILY [facility] Last Admin: 12/02/24 08:52 Dose: 1,000 mcg Documented By: SAMANTHA Folic Acid (Folic Acid 1 Mg Tablet) 1 mg PO DAILY [facility] Last Admin: 12/02/24 08:52 Dose: 1 mg Documented By: SAMANTHA Magnesium Hydroxide (Milk Of Magnesia 30 Ml Oral.Susp) 30 ml PO DAILY PRN PRN Reason: Constipation Melatonin (Melatonin 3 Mg Tablet) 6 mg PO BEDTIME PRN PRN Reason: Insomnia Last Admin: 12/01/24 20:25 Dose: 6 mg Documented By: LAURENT Midodrine (Midodrine Hcl 5 Mg Tablet) 5 mg PO TID [facility] Last Admin: 12/02/24 20:00 Dose: Not Given Documented By: JAY Non-Admin Reason: pt not alert enough for PO meds at this time Multivitamins/Vitamin C (Multivitamin Tablet) 1 tab PO DAILY [facility] Last Admin: 12/02/24 08:52 Dose: 1 tab Documented By: SAMANTHA Sodium Chloride (0.9 % Sodium Chloride Flush 3 Ml Syringe) 3 ml IVFLUSH QSHIFT [facility] Last Admin: 12/03/24 00:06 Dose: 3 ml Documented By: JAY Labs 12/03/24 06:45 12/03/24 06:45 Labs: Laboratory Results - last 24 hr 12/02/24 12/03/24 14:01 06:45 MCV 108.7 H MCH 34.4 H MCHC 31.7 RDW 14.0 Plt Count 94 L D MPV 11.5 Absolute Nucleated RBC 0.000 Nucleated RBC % (auto) 0.0 VBG pH 7.33 VBG pCO2 61 VBG pO2 114 VBG HCO3 32 H VBG O2 Saturation 100.0 VBG Base Excess 5.4 Anion Gap 10 L Estim Creat Clear Calc 26.4 Estimated GFR 34 Random Glucose 78 Calcium 8.4 Magnesium 1.5 L Assessment and Plan (1) CONNIE (acute kidney injury): Status: Acute Plan 79F does not follow with doctors, lives home alone, brought in after fall. daughter notes progressive dementia, paranoid behaviour, weight loss, loss of appetite, found to be FTT, lab abnormalities, transferred to ICU on 11/25/24 for hypotension requiring pressors, now weaned off and downgraded 11/29/24 failure to thrive due to alzheimers dementia complicated by severe protein calorie malnutrition, hypovolemic shock Further complicated by acute kidney injury, hyperkalemia, hypernatremia, B12 and folate deficiency with pancytopenia, hypoglycemia, hypotension now off pressors, hyperkalemia, hypernatremia, hypotension resolved, creatinine now plateaued around 1.3 - 1.6 continue midodrine prn, B12 and folate supplement, multivitamin, does not appear to have infectious source now off empiric ceftriaxone Monitor labs acute hypoxic and hypercapneic respiratory failure Significantly worsening today likely due to aspiration pneumonitis, on high-flow and non-rebreather NPO, oxygen support, will review goals of care with next of kin Left chest wall/breast mass Patient reports being there for years but is unreliable No obvious metastatic sites on CT chest or abdomen outpatient work up DVT prophylaxis-mechanical due to cytopenias Full code reason for continued hospitalization: hypoxia Quality Stroke Does the patient have a stroke diagnosis?: No VTE Prior VTE?: No VTE Risk Level:: Medical - moderate - high VTE Device Contraindication: Treatment Not Indicated VTE Drug Contraindication: N/A - Med Ordered
--- NOTE | 2024-12-03 12:20 | W.MHC.ACPN ---
Advanced Care Planning Note Advanced Care Planning Note Discussed with: family member(s) Time spent (in minutes): 22 Narrative: discussion was had at bedside with patient's children, Yvette and Todd. discussed patient's diagnoses of advanced dementia, severe malnutrition, and aspiration pneumonitis. discussed goals of care and decision made to transtition to comfort measures only. will disconitnue life prolonging treatments such as oxygen, and continue symptomatic treatment such as morphine for air hunger Problems Discussed (1) CONNIE (acute kidney injury):
[2024-12-03] MEDS: Morphine Sulfate 2 MG/ML CARTRIDGE IVPUSH ×3 (12:28→19:04)
--- NOTE | 2024-12-03 13:30 | MHC.CLN ---
F/U PATIENT STATUS CHANGED TO COMFORT MEASURES ONLY. NOW NPO. RD AVAILABLE NEEDED.
--- NOTE | 2024-12-04 02:08 | PC.NURSE ---
0145: Pt. noted to have decrease in RR from 14 and now agonal breathing, bryan stoke breathing. No s/sx of discomfort. At pt.'s side, 01:55 pt. noted to cease breathing. No palpable heart rate. Dr. Santiago notified and to call family.
--- NOTE | 2024-12-04 02:12 | PM.EVENT ---
Event Note Date of Service: 12/04/24 Event Note: I was called to patient's bedside to pronounce the patient. No spontaneous movements were present. There was no response to verbal or tactile stimulus. Pupils were mid dilated and fixed. No breath sounds were appreciated over either lung field. No carotid pulses were palpable. No heart sounds were auscultated over entire precordium. Patient was on comfort measures only. Patient pronounced on 12/04/2024 at 02:00. Called patient's daughter, Yvette and offered condolences. Time Spent With Patient Time: Total time managing care of this patient today ____ minutes.
--- NOTE | 2024-12-04 22:01 | P.DN_ITS ---
Discharge Sum: Prov Provider Primary care physician: Unknown Physician Consults: 11/25/24 18:25 Consult to Wound Care Routine Reason for consultation: multiple skin integrity issues Discharge Sum: Diag Contributing Factors (1) CONNIE (acute kidney injury): Discharge Sum: Summary Date and Time Date of admission: 11/24/24 21:52 Date of : 12/04/24 Time of : 02:00 Summary Details: from initial hpi: 79-year-old female with no significant past medical history; has not seen physician in a while; presented to the hospital with a chief complaint of fall. Patient is a poor historian. Most of the history obtained from the records and the staff. Reportedly patient had a fall heard by the landlord, subsequently sent her to the hospital for further evaluation Patient denies any chest pain palpitations. Denies any headaches or blurry visions. Denies any numbness tingling focal weakness. Denies back pain. Denies any urinary symptoms. Review of all other systems is negative except mentioned above ER course: Per ER physician, patient's exam was benign; CT head, CT chest abdomen pelvis showed no acute findings; patient noted to have elevated creatinine 2.45-unknown baseline; ulcers potassium 6.1. EKG no acute changes. Consult for possible dehydration. Patient was given IV fluids. Also noted have mild pancytopenia. No clear signs of infection. Given IV fluids. Castaneda catheter was placed for I's and O's. hospital course: 79F does not follow with doctors, lives home alone, brought in after fall. daughter notes progressive dementia, paranoid behaviour, weight loss, loss of appetite, found to be failure to thrive, multiple lab abnormalities. was transferred to ICU on 11/25/24 for hypotension requiring pressors, then weaned off and downgraded 11/29/24 failure to thrive due to alzheimers dementia complicated by severe protein calorie malnutrition, hypovolemic shock Further complicated by acute kidney injury, hyperkalemia, hypernatremia, B12 and folate deficiency with pancytopenia, hypoglycemia, hypotension acute hypoxic and hypercapneic respiratory failure on 12/03/24 patient had a significant aspiration episode requiring high flow oxygen with non rebreather due to aspiration pneuonitis. goals of care discussion was had with family due to poor prognosis. patient was made [employer] and 12/04/24 at 2am Additional Data Attending physician: Sylvester Hendricks MD
== END 2024-12-04 02:00 | disposition expired | DRG 640 ==
LOC: HO.ED 22:59 → HO.EDOVER 11-25 00:18 → HO.IMC 11-25 07:28 → HO.ICU 11-25 12:18 → HO.IMC 11-29 15:28
PROVIDERS: Internal Medicine; Internal Medicine Pulmonary Disease; Admitting Provider Hospitalist; Emergency Provider Emergency Medicine; Visit Provider Internal Medicine
DX: E86.1 Hypovolemia (principal); E43 Unspecified severe protein-calorie malnutrition; J69.0 Pneumonitis due to inhalation of food and vomit; J96.01 Acute respiratory failure with hypoxia; J96.02 Acute respiratory failure with hypercapnia; N17.9 Acute kidney failure, unspecified; D61.818 Other pancytopenia; Z68.1 Body mass index [BMI] 19.9 or less, adult; F02.82 Dementia in other diseases classified elsewhere, unspecified severity, with psychotic disturbance; E86.0 Dehydration; Z51.5 Encounter for palliative care; E87.5 Hyperkalemia; W19.XXXA Unspecified fall, initial encounter; G30.9 Alzheimer's disease, unspecified; R62.7 Adult failure to thrive; R57.1 Hypovolemic shock; E16.2 Hypoglycemia, unspecified
CPT/HCPCS: 36415; 70450; 71045; 71250; 74176; 80048; 80053; 80076; 80307; 81001; 82040; 82533; 82550; 82607; 82746; 82784; 82803; 82947; 83010; 83605; 83615; 83690; 83735; 84100; 84443; 84484; 85025; 85027; 85045; 85610; 86140; 86334; 86704; 86706; 86709; 86803; 87040; 87340; 92610; 93005; 93306; 93971; 99285; J0613; J0696; J1808; J1938; J2270; J2543; J3370; J3420; J3475; J7120; P9047

== ENCOUNTER → 2024-11-24 17:48 | Outpatient (BNV) | payer MEDICARE, SELFPAY | PROVIDERS: Admitting Provider Hospitalist; Emergency Provider Emergency Medicine; Visit Provider Internal Medicine | DX: Z13.6 Encounter for screening for cardiovascular disorders (principal) | CPT/HCPCS: 93010 ==

== ENCOUNTER → 2024-11-24 18:15 | Outpatient (BNV) | payer SELFPAY | PROVIDERS: Emergency Provider Emergency Medicine; Visit Provider Radiology Diagnostic Radiology | DX: K57.30 Diverticulosis of large intestine without perforation or abscess without bleeding (principal); R22.2 Localized swelling, mass and lump, trunk; R41.82 Altered mental status, unspecified | CPT/HCPCS: 70450; 71045; 71250; 74176 ==

== ENCOUNTER 2024-11-24 21:52 | Outpatient (BNV) | payer MEDICARE, SELFPAY | END 2024-11-29 07:00 | PROVIDERS: Admitting Provider Hospitalist; Emergency Provider Emergency Medicine; Visit Provider Internal Medicine Cardiovascular Disease | DX: Q21.19 Other specified atrial septal defect (principal); I34.81 Nonrheumatic mitral (valve) annulus calcification; I27.20 Pulmonary hypertension, unspecified; J91.8 Pleural effusion in other conditions classified elsewhere | CPT/HCPCS: 93306 ==

== ENCOUNTER 2024-11-24 21:52 | Outpatient (BNV) | payer MEDICARE, SELFPAY | END 2024-12-01 18:00 | PROVIDERS: Admitting Provider Hospitalist; Emergency Provider Emergency Medicine; Visit Provider Radiology Diagnostic Radiology | DX: R22.32 Localized swelling, mass and lump, left upper limb (principal) | CPT/HCPCS: 93971 ==

== ENCOUNTER → 2024-11-24 21:52 | Outpatient (BNV) | payer MEDICARE, SELFPAY | PROVIDERS: Admitting Provider Hospitalist; Emergency Provider Emergency Medicine; Visit Provider Internal Medicine | DX: D53.1 Other megaloblastic anemias, not elsewhere classified (principal) | CPT/HCPCS: 99221 ==

== ENCOUNTER → 2024-11-24 21:52 | Outpatient (BNV) | payer MEDICARE, SELFPAY | PROVIDERS: Admitting Provider Hospitalist; Emergency Provider Emergency Medicine; Visit Provider Internal Medicine Pulmonary Disease | DX: N17.9 Acute kidney failure, unspecified (principal); E43 Unspecified severe protein-calorie malnutrition; I95.9 Hypotension, unspecified; E86.1 Hypovolemia | CPT/HCPCS: 99291 ==

== ENCOUNTER → 2024-11-24 21:52 | Outpatient (BNV) | payer MEDICARE, SELFPAY | PROVIDERS: Admitting Provider Hospitalist; Emergency Provider Emergency Medicine; Visit Provider Internal Medicine | DX: N17.9 Acute kidney failure, unspecified (principal) | CPT/HCPCS: 99223; 99232; 99233; 99497; 99499 ==